=== PATIENT | female | born 1945 | race Caucasian/White ===

== ENCOUNTER 2020-10-26 14:07 | Outpatient (REF) | payer MEDICARE, SELFPAY ==
--- NOTE | 2020-10-26 14:11 | MM_ITS ---
EXAMINATION: MM SCREENING DIGITAL BREAST TOMOSYNTHESIS, BILATERAL CLINICAL INFORMATION: Screening. Asymptomatic. The lifetime risk of breast cancer based on the Tyrer-Cuzick Model is 3%. COMPARISON: Mammography: 09/08/2011, 01/11/2008 TECHNIQUE: Digital breast tomosynthesis is performed in both the craniocaudal and mediolateral oblique views along with computer-aided detection (CAD). Synthesized 2D images are generated from the tomosynthesis. FINDINGS: There are scattered areas of fibroglandular density (ACR BI-RADS breast composition Category b). There are no significant masses, abnormal calcifications, or other abnormalities. There are some prominent veins in each breast. Vascular calcifications are also noted. The skin contours are smooth. MM/MM tomosynthesis screening BI IMPRESSION: No mammographic evidence of malignancy. ASSESSMENT: BI-RADS 2: Benign RECOMMENDATION: Routine annual mammography screening. This patient's information was entered into a reminder system with a target due date for their next mammogram.
== END 2020-10-26 14:08 | disposition home or self-care (01) ==
LOC: HO.MAMMO 14:07
PROVIDERS: PCP Internal Medicine; Visit Provider Internal Medicine
DX: Z12.31 Encounter for screening mammogram for malignant neoplasm of breast (principal)
CPT/HCPCS: 77063; 77067

== ENCOUNTER 2021-01-17 06:10 | Outpatient (REF) | payer MEDICARE, SELFPAY ==
[2021-01-17 06:57] LABS: Hematocrit 40.9 % (37-47); Hemoglobin 13.1 g/dl (12.0-16.0); Mean Corpuscular Hemoglobin 32.1 pg (27.0-33.0); Mean Corpuscular Volume 100.2 fL (80-98); Mean Platelet Volume 9.7 fL (9.4-12.3); Platelet Count 231 X10*3/uL (160-400); Red Blood Count 4.08 X10*6/uL (4.20-5.50); Red Cell Distribution Width 13.2 % (11.0-16.0)
[2021-01-17 07:25] LABS: Alanine Aminotransferase 14 U/L (0-31); Albumin Level 4.2 g/dL (3.5-5.0); Alkaline Phosphatase 77 U/L (39-117); Anion Gap 12 (12-20); Aspartate Amino Transferase 12 U/L (5-31); Bilirubin Direct 0.2 mg/dL (0.0-0.5); Bilirubin Total 0.4 mg/dL (0.0-1.0); Blood Urea Nitrogen 24 mg/dL (9-16); Calcium 9.1 mg/dL (8.4-10.2); Carbon Dioxide 28 mmol/L (22-29); Chloride 106 mmol/L (96-108); Cholesterol 193 mg/dL; Estimated Glomerular Filt Rate 50; Glucose Random 111 mg/dL (60-115); HDL Cholesterol 57 mg/dL; LDL Cholesterol Calculated 110 mg/dl; Potassium 4.1 mmol/L (3.3-5.1); Sodium 142 mmol/L (135-145); Total Protein 6.8 g/dL (6.5-8.0); Triglycerides 130 mg/dL
[2021-01-17 07:45] LABS: Thyroid Stimulating Hormone 7.63 uIU/mL (0.32-4.0)
[2021-01-17 09:04] LABS: Estimated Average Glucose 123 mg/dL; Hemoglobin A1c % 5.9 %
[2021-01-17 09:13] LABS: Folate 19.6 ng/mL (> or = 4.0); Vitamin B12 419 pg/mL (200-900)
[2021-01-21 14:36] LABS: Vitamin D 25-OH, D2 <4 ng/mL; Vitamin D 25-OH, D3 38 ng/mL; Vitamin D 25-OH, Total 38 ng/mL (30-100)
== END 2021-01-17 06:11 | disposition home or self-care (01) ==
LOC: HO.LAB 06:10
PROVIDERS: Visit Provider Internal Medicine
DX: I10 Essential (primary) hypertension (principal)
CPT/HCPCS: 36415; 80048; 80061; 80076; 82306; 82607; 82746; 83036; 84443; 85027

== ENCOUNTER 2021-04-06 07:09 | Outpatient (REF) | payer MEDICARE, SELFPAY ==
[2021-04-06 08:06] LABS: Hematocrit 41.2 % (37-47); Hemoglobin 13.3 g/dl (12.0-16.0); Mean Corpuscular HGB Conc 32.3 g/dl (31.0-35.0); Mean Corpuscular Hemoglobin 32.6 pg (27.0-33.0); Mean Platelet Volume 9.7 fL (9.4-12.3); Platelet Count 229 X10*3/uL (160-400); Red Blood Count 4.08 X10*6/uL (4.20-5.50); Red Cell Distribution Width 13.3 % (11.0-16.0); White Blood Count 5.9 X10*3/uL (4.8-10.8)
[2021-04-06 08:26] LABS: Glucose Urine UA NEG (NEG); Leukocyte Esterase Urine 2+ (NEG); Nitrite Urine NEG (NEG); PH 5.5 (5.0-8.0); Specific Gravity - Urine 1.025 (1.005-1.025); Urine Blood TRACE (NEG); Urine Ketones NEG (NEG); Urine Protein NEG (NEG-TRACE)
[2021-04-06 08:27] LABS: Appearance Urine CLEAR; Color Urine YELLOW
[2021-04-06 08:56] LABS: RBC Urine 0-2 /HPF (0); Squamous Epithelial Cell Urine 1+ /LPF
[2021-04-06 09:27] LABS: Anion Gap 12 (12-20); Blood Urea Nitrogen 26 mg/dL (9-16); Carbon Dioxide 28 mmol/L (22-29); Chloride 107 mmol/L (96-108); Estimated Glomerular Filt Rate 57; Potassium 4.2 mmol/L (3.3-5.1); Sodium 143 mmol/L (135-145)
[2021-04-06 09:28] LABS: Alanine Aminotransferase 14 U/L (0-31); Albumin Level 4.2 g/dL (3.5-5.0); Alkaline Phosphatase 77 U/L (39-117); Aspartate Amino Transferase 13 U/L (5-31); Bilirubin Direct 0.2 mg/dL (0.0-0.5); Bilirubin Total 0.2 mg/dL (0.0-1.0); Calcium 9.5 mg/dL (8.4-10.2); Cholesterol 205 mg/dL; Glucose Random 112 mg/dL (60-115); HDL Cholesterol 64 mg/dL; LDL Cholesterol Calculated 111 mg/dl; Triglycerides 150 mg/dL
[2021-04-06 09:36] LABS: Microalbum/Creatinine Ratio Ur 44.6 ug/mg cr
[2021-04-06 09:45] LABS: Estimated Average Glucose 126 mg/dL
[2021-04-06 09:50] LABS: Thyroid Stimulating Hormone 3.11 uIU/mL (0.32-4.0)
[2021-04-08 09:02] LABS: Folate 19.6 ng/mL (> or = 4.0); Vitamin B12 454 pg/mL (200-900)
[2021-04-10 12:46] LABS: Vitamin D 25-OH, D2 <4 ng/mL; Vitamin D 25-OH, D3 39 ng/mL; Vitamin D 25-OH, Total 39 ng/mL (30-100)
== END 2021-04-06 07:10 | disposition home or self-care (01) ==
LOC: HO.LAB 07:09
PROVIDERS: PCP Internal Medicine; Visit Provider Internal Medicine
DX: E11.9 Type 2 diabetes mellitus without complications (principal); I10 Essential (primary) hypertension
CPT/HCPCS: 36415; 80048; 80061; 80076; 81001; 81003; 82043; 82306; 82607; 82746; 83036; 84443; 85027

== ENCOUNTER 2021-04-18 13:48 | Outpatient (REF) | payer MEDICARE, SELFPAY ==
[2021-04-18 15:06] LABS: Blood Urea Nitrogen 23 mg/dL (9-16); Estimated Glomerular Filt Rate 46
== END 2021-04-18 13:49 | disposition home or self-care (01) ==
LOC: HO.LAB 13:48
PROVIDERS: PCP Internal Medicine; Visit Provider Radiology Vascular & Interventional Radiology
DX: R79.89 Other specified abnormal findings of blood chemistry (principal); R94.4 Abnormal results of kidney function studies
CPT/HCPCS: 36415; 82565; 84520

== ENCOUNTER 2021-07-05 06:14 | Outpatient (REF) | payer MEDICARE, SELFPAY ==
[2021-07-05 08:02] LABS: Glucose Urine UA NEG (NEG); Leukocyte Esterase Urine 1+ (NEG); Nitrite Urine NEG (NEG); Urine Blood TRACE (NEG); Urine Ketones NEG (NEG); Urine Protein NEG (NEG-TRACE)
[2021-07-05 08:07] LABS: Appearance Urine CLEAR; Color Urine YELLOW
[2021-07-05 08:21] LABS: Bacteria Urine TRACE /LPF; Renal Epithelial Cells Urine TRACE /LPF; Squamous Epithelial Cell Urine TRACE /LPF; WBC Urine 0-2 /HPF (0-4)
[2021-07-05 08:22] LABS: Calcium Phosphate Crystals Ur TRACE /LPF
== END 2021-07-05 06:15 | disposition home or self-care (01) ==
LOC: HO.LAB 06:14
PROVIDERS: PCP Internal Medicine; Visit Provider Internal Medicine
DX: E11.9 Type 2 diabetes mellitus without complications (principal); I10 Essential (primary) hypertension
CPT/HCPCS: 81001; 81003

== ENCOUNTER 2021-10-09 13:08 | Outpatient (REF) | payer MEDICARE, SELFPAY ==
[2021-10-09 14:14] LABS: Appearance Urine CLEAR; Color Urine STRAW; Glucose Urine UA NEG (NEG); Leukocyte Esterase Urine NEG (NEG); Nitrite Urine NEG (NEG); Specific Gravity - Urine <= 1.005 (1.005-1.025); Urine Blood NEG (NEG); Urine Ketones NEG (NEG); Urine Protein NEG (NEG-TRACE)
== END 2021-10-09 13:09 | disposition home or self-care (01) ==
LOC: HO.LAB 13:08
PROVIDERS: PCP Internal Medicine; Visit Provider Internal Medicine
DX: E11.9 Type 2 diabetes mellitus without complications (principal); I10 Essential (primary) hypertension
CPT/HCPCS: 81003

== ENCOUNTER 2021-10-16 14:03 | Outpatient (REF) | payer MEDICARE, SELFPAY ==
[2021-10-16 14:47] LABS: Blood Urea Nitrogen 23 mg/dL (9-16); Estimated Glomerular Filt Rate 50
== END 2021-10-16 14:04 | disposition home or self-care (01) ==
LOC: HO.LAB 14:03
PROVIDERS: PCP Internal Medicine; Visit Provider Radiology Vascular & Interventional Radiology
DX: R79.89 Other specified abnormal findings of blood chemistry (principal); R94.4 Abnormal results of kidney function studies
CPT/HCPCS: 36415; 82565; 84520

== ENCOUNTER 2022-05-20 10:50 | Outpatient (REF) | payer MEDICARE, SELFPAY ==
--- NOTE | ~2022-05-20 | MM_ITS ---
EXAMINATION: MM SCREENING DIGITAL BREAST TOMOSYNTHESIS, BILATERAL CLINICAL INFORMATION: Screening. Asymptomatic. The lifetime risk of breast cancer based on the Tyrer-Cuzick Model is 2%. COMPARISON: Mammography: 10/26/2020, 09/08/2011 TECHNIQUE: Digital breast tomosynthesis is performed in both the craniocaudal and mediolateral oblique views along with computer-aided detection (CAD). Synthesized 2D images are generated from the tomosynthesis. FINDINGS: There are scattered areas of fibroglandular density (ACR BI-RADS breast composition Category b). There are no significant masses, abnormal calcifications, or other abnormalities. Parenchymal pattern is similar to prior studies. There are mildly prominent veins in noted. Vascular calcifications again seen. No significant changes. MM/MM tomosynthesis screening BI IMPRESSION: No mammographic evidence of malignancy. ASSESSMENT: BI-RADS 2: Benign RECOMMENDATION: Routine annual mammography screening. This patient's information was entered into a reminder system with a target due date for their next mammogram.
== END 2022-05-20 10:51 | disposition home or self-care (01) ==
LOC: HO.MAMMO 10:50
PROVIDERS: Visit Provider Internal Medicine
DX: Z12.31 Encounter for screening mammogram for malignant neoplasm of breast (principal)
CPT/HCPCS: 77063; 77067

== ENCOUNTER 2022-09-04 06:10 | Outpatient (REF) | payer MEDICARE, SELFPAY ==
[2022-09-04 06:36] LABS: MANUAL DIFF FLAG NO
[2022-09-04 07:31] LABS: Basophils Absolute Auto 0.1 X10*3/uL (0.0-0.2); Basophils Percent Auto 1.4 % (0-2); Eosinophils Absolute Auto 0.3 X10*3/uL (0.0-0.4); Eosinophils Percent Auto 5.9 % (0-4); Hematocrit 39.9 % (37.0-47.0); Hemoglobin 12.7 g/dl (12.0-16.0); Imm Gran Abs Auto 0.02 X10*3/uL (0.00-0.03); Imm Gran Pct Auto 0.4 % (0.0-0.4); Lymphocytes Absolute Auto 1.4 X10*3/uL (1.2-4.9); Lymphocytes Percent Auto 27.3 % (20-40); Mean Corpuscular HGB Conc 31.8 g/dl (31.0-35.0); Mean Corpuscular Hemoglobin 32.7 pg (27.0-33.0); Mean Corpuscular Volume 102.8 fL (80.0-98.0); Mean Platelet Volume 9.6 fL (9.4-12.3); Monocytes Absolute Auto 0.5 X10*3/uL (0.1-1.2); Monocytes Percent Auto 10.3 % (2-11); Neutrophils Absolute Auto 2.8 x10*3/uL (2.0-8.3); Neutrophils Percent Auto 54.7 % (45-73); Platelet Count 250 X10*3/uL (160-400); Red Blood Count 3.88 X10*6/uL (4.20-5.50); Red Cell Distribution Width 12.7 % (11.0-16.0); White Blood Count 5.1 X10*3/uL (4.8-10.8)
[2022-09-04 08:18] LABS: Alanine Aminotransferase 10 U/L (0-31); Albumin Level 4.1 g/dL (3.5-5.0); Alkaline Phosphatase 76 U/L (39-117); Anion Gap 14 (12-20); Aspartate Amino Transferase 16 U/L (5-31); Bilirubin Total 0.5 mg/dL (0.0-1.0); Blood Urea Nitrogen 22 mg/dL (9-16); Calcium 9.5 mg/dL (8.4-10.2); Carbon Dioxide 29 mmol/L (22-29); Chloride 106 mmol/L (96-108); Cholesterol 213 mg/dL; Estimated Glomerular Filt Rate > 60; Glucose Fasting 98 mg/dL (60-99); HDL Cholesterol 58 mg/dL; LDL Cholesterol Calculated 124 mg/dl; Potassium 4.5 mmol/L (3.3-5.1); Sodium 144 mmol/L (135-145); Total Protein 6.9 g/dL (6.5-8.0); Triglycerides 156 mg/dL
[2022-09-04 08:22] LABS: TSH reflex Free T4 3.95 uIU/mL (0.32-4.0)
== END 2022-09-04 06:11 | disposition home or self-care (01) ==
LOC: HO.LAB 06:10
PROVIDERS: PCP Internal Medicine; Visit Provider Nurse Practitioner Family
DX: E03.9 Hypothyroidism, unspecified (principal); E11.9 Type 2 diabetes mellitus without complications; E78.00 Pure hypercholesterolemia, unspecified; I10 Essential (primary) hypertension
CPT/HCPCS: 36415; 80053; 80061; 84443; 85025

== ENCOUNTER 2022-10-09 11:49 | Outpatient (REF) | payer MEDICARE, SELFPAY ==
[2022-10-09 13:19] LABS: Blood Urea Nitrogen 30 mg/dL (9-16); Estimated Glomerular Filt Rate 52
== END 2022-10-09 11:50 | disposition home or self-care (01) ==
LOC: HO.LAB 11:49
PROVIDERS: PCP Internal Medicine; Visit Provider Radiology Vascular & Interventional Radiology
DX: R79.89 Other specified abnormal findings of blood chemistry (principal); R94.4 Abnormal results of kidney function studies
CPT/HCPCS: 36415; 82565; 84520

== ENCOUNTER 2022-11-12 11:17 | Outpatient (REF) | payer MEDICARE, SELFPAY ==
[2022-11-12 12:18] LABS: Influenza A PCR POSITIVE (Negative); Influenza B PCR NEGATIVE (Negative); Resp Syncy Virus RNA Qual PCR NEGATIVE (Negative); SARS COV2 PCR INHOUSE NEGATIVE (Negative)
== END 2022-11-12 11:18 | disposition home or self-care (01) ==
LOC: HO.LNP 11:17
PROVIDERS: Visit Provider Nurse Practitioner Family
DX: Z20.822 Contact with and (suspected) exposure to COVID-19 (principal); B34.9 Viral infection, unspecified
CPT/HCPCS: 0241U

== ENCOUNTER 2023-01-15 11:01 | Outpatient (REF) | payer MEDICARE, SELFPAY ==
[2023-01-15 11:56] LABS: Hematocrit 41.1 % (37.0-47.0); Hemoglobin 13.2 g/dl (12.0-16.0); Mean Corpuscular HGB Conc 32.1 g/dl (31.0-35.0); Mean Corpuscular Hemoglobin 32.4 pg (27.0-33.0); Mean Corpuscular Volume 100.7 fL (80.0-98.0); Mean Platelet Volume 9.3 fL (9.4-12.3); Platelet Count 232 X10*3/uL (160-400); Red Blood Count 4.08 X10*6/uL (4.20-5.50); Red Cell Distribution Width 12.8 % (11.0-16.0); White Blood Count 9.1 X10*3/uL (4.8-10.8)
[2023-01-15 12:36] LABS: Alanine Aminotransferase 14 U/L (0-31); Albumin Level 4.1 g/dL (3.5-5.0); Alkaline Phosphatase 76 U/L (39-117); Anion Gap 14 (12-20); Aspartate Amino Transferase 17 U/L (5-31); Bilirubin Direct 0.2 mg/dL (0.0-0.5); Bilirubin Total 0.6 mg/dL (0.0-1.0); Blood Urea Nitrogen 18 mg/dL (9-16); Calcium 9.8 mg/dL (8.4-10.2); Carbon Dioxide 27 mmol/L (22-29); Chloride 107 mmol/L (96-108); Cholesterol 203 mg/dL; Estimated Glomerular Filt Rate > 60; Glucose Random 96 mg/dL (60-115); HDL Cholesterol 58 mg/dL; LDL Cholesterol Calculated 106 mg/dl; Potassium 4.3 mmol/L (3.3-5.1); Sodium 144 mmol/L (135-145); Triglycerides 196 mg/dL
[2023-01-15 12:53] LABS: Thyroid Stimulating Hormone 2.95 uIU/mL (0.32-4.0)
== END 2023-01-15 11:02 | disposition home or self-care (01) ==
LOC: HO.LAB 11:01
PROVIDERS: PCP Internal Medicine; Visit Provider Internal Medicine
DX: M48.062 Spinal stenosis, lumbar region with neurogenic claudication (principal); E78.00 Pure hypercholesterolemia, unspecified; E11.9 Type 2 diabetes mellitus without complications
CPT/HCPCS: 36415; 80048; 80061; 80076; 84443; 85027

== ENCOUNTER 2023-03-20 10:06 | Outpatient (REF) | payer MEDICARE, SELFPAY ==
[2023-03-20 11:36] LABS: Blood Urea Nitrogen 15 mg/dL (9-16); Estimated Glomerular Filt Rate > 60
== END 2023-03-20 10:07 | disposition home or self-care (01) ==
LOC: HO.LAB 10:06
PROVIDERS: PCP Internal Medicine; Visit Provider Radiology Vascular & Interventional Radiology
DX: R79.89 Other specified abnormal findings of blood chemistry (principal); R94.4 Abnormal results of kidney function studies
CPT/HCPCS: 36415; 82565; 84520

== ENCOUNTER → 2023-06-08 09:45 | Outpatient (BNV) | payer MEDICARE, SELFPAY | PROVIDERS: PCP Internal Medicine; Visit Provider Radiology Diagnostic Radiology | DX: Z12.31 Encounter for screening mammogram for malignant neoplasm of breast (principal) | CPT/HCPCS: 77063; 77067 ==

== ENCOUNTER 2023-06-08 10:19 | Outpatient (REF) | payer MEDICARE, SELFPAY ==
--- NOTE | ~2023-06-08 | MM_ITS ---
EXAMINATION: MM SCREENING DIGITAL BREAST TOMOSYNTHESIS, BILATERAL CLINICAL INFORMATION: Screening. Asymptomatic. The lifetime risk of breast cancer based on the Tyrer-Cuzick Model is 2.2%. COMPARISON: Mammography: This study is compared with prior exams dating back to 2019. TECHNIQUE: Digital breast tomosynthesis is performed in both the craniocaudal and mediolateral oblique views along with computer-aided detection (CAD). Synthesized 2D images are generated from the tomosynthesis. FINDINGS: There are scattered areas of fibroglandular density (ACR BI-RADS breast composition Category b). There are no significant masses, abnormal calcifications, or other abnormalities. MM/MM tomosynthesis screening BI IMPRESSION: No mammographic evidence of malignancy. ASSESSMENT: BI-RADS BI-RADS 1 - Negative RECOMMENDATION: Routine annual mammography screening. 1 year F/U This examination should not preclude the clinical evaluation of a suspicious palpable abnormality. This patient's information was entered into a reminder system with a target due date for their next mammogram.
== END 2023-06-08 10:20 | disposition home or self-care (01) ==
LOC: HO.MAMMO 10:19
PROVIDERS: PCP Internal Medicine; Visit Provider Internal Medicine
DX: Z12.31 Encounter for screening mammogram for malignant neoplasm of breast (principal)
CPT/HCPCS: 77063; 77067

== ENCOUNTER 2023-09-23 13:52 | Outpatient (AMB) | payer MEDICARE, SELFPAY ==
--- NOTE | 2023-09-23 14:01 | MHC.PC.OV ---
Vital Signs 09/23/23 14:04 Height 5 ft 4 in Weight 196 lb 8 oz BMI 33.7 BP 140/70 H Blood Pressure Location Lt brachial Position Sitting Pulse 79 Pulse Source Pulse Oximeter Pulse Oximetry (%) 99 Oxygen Delivery Method Room Air Intake Visit Reasons: Theresa Ventura Broken left hip, 08/20-09/15 Intake Note: Patient is here for hospital discharge follow up. Patient was discharged from [facility] on 09/15[facility]23. Station Cashier Required: No E D Tech: Not Required per policy Accompanied by: Self / Same As Patient Allergies No Known Allergies [No Known Allergies*] Allergy (Verified 09/23/23 14:02) Tobacco use date assessed: 09/23/23 Fall risk assessment: 1 Fall in past year Last assessed Fall Risk: 09/23/23 Dental Screening Dental Screen Date: 09/23/23 Did you have a dental visit in the last 12 months?: No Did you have a dental problem in the last 6 months where you did not have access to dental care?: No Was dental information given to patient?: No (dentures) HPI Theresa Ventura Broken left hip, 08/20-09/15 HPI Details 78-year-old female presents to the office to discuss her chronic medical conditions. Patient since last visit had a fall and fractured her left hip. She received a replacement and was in a surgical shelter for a few weeks. She is been discharged home. Patient is able to walk using a walker. She is able to do her activities of daily living. Her pain symptoms are under reasonable control. Patient lives at home with her son and [id number]. She is able to climb stairs. [facility] Medical History Spinal stenosis, lumbar region with neurogenic claudication Class 2 severe obesity with body mass index (BMI) of 35 to 39.9 with serious comorbidity Hypercholesterolemia Diabetes mellitus Essential (primary) hypertension Surgical History (Updated 09/23/23 @ 14:55 by Pepe Marley MD) History of left hip replacement History of back surgery History of intravascular stent placement History of surgery History of tonsillectomy and adenoidectomy Family History Father Heart disease Mother Intestinal hemorrhage Family/Other Heart disease Hypertension Social History Housing: House Alcohol intake: current Alcohol intake frequency: does not drink Patient Tobacco Use Status: Former Tobacco user (11 years ago) Quit Date: 11 years ago Tobacco use type: Cigarette e-Cigarette/Vaping Use: Never Used Second Hand Smoke Exposure: No service: No Current occupational status: retired Cognitive needs: Yes (walker) Hearing needs: No Vision needs: Yes (reading glasses) Questionnaire Thrive Questionnaire Date Thrive assessed: 01/15/23 IRINA-7 AMB Questionnaire IRINA-7 Date IRINA - 7 assessed: 01/15/23 Source: Developed by Drs. Kirk Lizama, Katelynn Kent, Rene Cherry and colleagues, with an educational dulce from [employer]. Physical exam (Primary Care) Vital Signs: Last Vital Signs Pulse 79 09/23/23 14:04 BP 140/70 H 09/23/23 14:04 Pulse Ox 99 09/23/23 14:04 Oxygen Delivery Method Room Air 09/23/23 14:04 BMI result Body Mass Index 33.7 Tobacco/Smoking Status: Tobacco use Status Tobacco use date assessed 09/23/23 09/23/23 14:08 Patient Tobacco Use Status Former Tobacco user (11 09/23/23 14:08 years ago) Tobacco use type Cigarette 09/23/23 14:08 e-Cigarette/Vaping Use Never Used 09/23/23 14:08 Thrive Assessment: Date of Thrive Assessment Date Thrive assessed 01/15/23 09/23/23 14:08 Const General: cooperative and healthy appearing Nutritional Appearance: well nourished Orientation/consciousness: patient oriented x3 Limitations: no limitations HENMT Head: Yes normal to inspection Eyes General: appearance normal, both eyes and all related structures Neck Neck: Yes normal visual inspection Chest Chest palpation & inspection: normal palpation of entire chest wall Resp Effort & Inspection: normal respiratory effort Neuro General: patient oriented x3 Office Procedures Flu Questionnaire Does the patient have a severe egg allergy?: No Does the patient have severe life threatening allergies?: No Does the patient have a fever or illness today?: No Has the patient ever had Guillain-[place] Syndrome?: No Has the patient ever had any past reaction to a flu shot?: No Results AMB Hemoglobin A1c AMB Hemoglobin A1c 5.3 % Last Edit by DARSHAN Smith on 09/23/23 14:29 Immunizations flu vacc [id number] 6mos up(PF) 60 mcg(15 mcgx4)/0.5 mL IM syringe Performing Provider: Pepe Marley MD Performing Location: [facility] Administered by: Deanna Miles on 09/23/23 14:21 Dose Route Admin Location Dispensed Lot Number Expiration Date NDC Packing Machine Can Feeder 0.5 mL IM Left Deltoid 0.5 mL [id number] 05/29/24 [id number] VIS Given Date VIS Provided VIS Publication Date 09/23/23 Single Vaccine 21 Eligibility Eligibility Date Funding Source Not VFC Eligible 09/23/23 Private Results Reviewed Results Reviewed: Laboratory Last Values Hgb A1c (Clinic) 5.3 % (4.0-6.0) 09/23/23 14:16 Assessment and Plan Assessment & Plan (1) Hip joint replacement status: Code(s): Z96.649 - Presence of unspecified artificial hip joint Plan: Continue follow-up with orthopedic surgeon. Vital signs are stable. Blood work is in range. Orders: Orders AMB Hemoglobin A1c Today E11.9 - Type 2 diabetes mellitus without complications Influenza [id number] Immunization Today Z23 - Encounter for immunization Coding Level of Care Code Est Pt Level 3 (78755) Diagnoses Hip joint replacement status Z96.649
[2023-09-23 14:04] VITALS: BP 140/70; PULSE 79; O2SAT 99; BMI 33.7
== END 2023-09-23 14:37 | disposition home or self-care (01) ==
PROVIDERS: PCP Internal Medicine; Visit Provider Internal Medicine
DX: Z23 Encounter for immunization (principal); E11.9 Type 2 diabetes mellitus without complications; Z96.649 Presence of unspecified artificial hip joint
CPT/HCPCS: 83036; 90471; 90686; 99213

== ENCOUNTER 2023-11-12 08:45 | Outpatient (AMB) | payer MEDICARE, SELFPAY ==
--- NOTE | 2023-11-12 08:50 | MHC.PC.OV ---
Vital Signs 11/12/23 08:51 Height 5 ft 4 in Weight 192 lb 8 oz BMI 33.0 BP 130/80 Blood Pressure Location Lt brachial Position Sitting Pulse 82 Pulse Source Pulse Oximeter Pulse Oximetry (%) 94 Oxygen Delivery Method Room Air Intake Visit Reasons: BP follow up, per Dr. Kristie Joseph Note: Patient is here to follow up on blood pressure. Pipe Machine Operator Required: No Agricultural Real Estate Agent: Not Required per policy Accompanied by: Self / Same As Patient Allergies No Known Allergies [No Known Allergies*] Allergy (Verified 11/12/23 08:51) Tobacco use date assessed: 11/12/23 HPI HPI Comments History of Present Illness Details 78-year-old female past medical history significant for hypercholesteremia, hypothyroidism, diabetes mellitus and hypertension. Patient Dr. Marley presents today for follow-up. Blood pressure office today 130/80. Patient reports that when [facility] comes and checks her b/ps: 176/77, 166/70. patient reports prior to taking second does of lisinopril or the evening. However when physical therapist came to discharge her from PT her blood pressure was checked and it was 140/90 and patient reports she had been rushing around that morning from her hair appointment. Patient reports hydrochlorothiazide 25 mg daily was recently added to her blood pressure regimen. Patient denies any headaches, blurred vision and chest pains. Patient reports she does have old blood pressure cuff at home which she is not sure how accurate the readings would be if she used it. Requesting a new prescription for this as well as a refill on her lisinopril. Rx sent [facility] Medical History Spinal stenosis, lumbar region with neurogenic claudication Class 2 severe obesity with body mass index (BMI) of 35 to 39.9 with serious comorbidity Hypercholesterolemia Diabetes mellitus Essential (primary) hypertension Surgical History History of left hip replacement History of back surgery History of intravascular stent placement History of surgery History of tonsillectomy and adenoidectomy Family History Father Heart disease Mother Intestinal hemorrhage Family/Other Heart disease Hypertension Social History (Reviewed 11/12/23 @ 08:50 by TIRSO Smith Housing: House Alcohol intake: current Alcohol intake frequency: does not drink Patient Tobacco Use Status: Former Tobacco user (11 years ago) Quit Date: 11 years ago Tobacco use type: Cigarette e-Cigarette/Vaping Use: Never Used Second Hand Smoke Exposure: No service: No Current occupational status: retired Cognitive needs: Yes (walker) Hearing needs: No Vision needs: Yes (reading glasses) Questionnaire Thrive Questionnaire Date Thrive assessed: 01/15/23 IRINA-7 AMB Questionnaire IRINA-7 Date IRINA - 7 assessed: 01/15/23 Source: Developed by Drs. Kirk Lizama, Katelynn Kent, Rene Cherry and colleagues, with an educational dulce from [employer]. Review of Systems Const Denies chills, Denies fatigue, Denies fever(s) and Denies poor appetite Eyes Denies no additional complaints ENT Reports Normal hearing present Card Denies chest pain, Denies syncope, Denies rapid heart rate and Denies dyspnea Resp Denies cough and Denies dyspnea GI Denies change in stool character, Denies constipation, Denies diarrhea, Denies nausea and Denies vomiting Denies urinary frequency, Denies dysuria and Denies urinary urgency Neuro Reports Normal hearing present, Denies confusion and Denies syncope Psych Denies confusion Endo Denies fatigue Physical exam (Primary Care) Vital Signs: Last Vital Signs Pulse 82 11/12/23 08:51 BP 130/80 11/12/23 08:51 Pulse Ox 94 11/12/23 08:51 Oxygen Delivery Method Room Air 11/12/23 08:51 BMI result Body Mass Index 33.0 Tobacco/Smoking Status: Tobacco use Status Tobacco use date assessed 09/23/23 09/23/23 14:08 Patient Tobacco Use Status Former Tobacco user 09/23/23 14:08 Tobacco use type Cigarette 09/23/23 14:08 e-Cigarette/Vaping Use Never Used 09/23/23 14:08 Thrive Assessment: Date of Thrive Assessment Date Thrive assessed 01/15/23 09/23/23 14:08 Const General: No confusion Orientation/consciousness: No confusion HENMT Head: Yes normocephalic and Yes atraumatic Eyes Conjunctivae: conjunctivae normal Chest Chest palpation & inspection: normal inspection of the chest Resp Effort & Inspection: normal respiratory effort Auscultation: clear to auscultation bilaterally, no crackles, no rhonchi and no wheezes Cardio Rate: regular rate Rhythm: regular rhythm Heart sounds: S1 normal heart sound present and S2 normal heart sound present GI Inspection: Yes normal to inspection Neuro General: No confusion Cranial nerves: Yes Normal hearing present Extrem General: No edema Assessment and Plan Assessment & Plan (1) Diabetes mellitus: Code(s): E11.9 - Type 2 diabetes mellitus without complications Qualifiers: Diabetes mellitus type: type 2 Diabetes mellitus mcc insulin use: without mcc use Diabetes mellitus complication status: with circulatory complication Plan: Continue on pioglitazone. (2) Acquired hypothyroidism: Code(s): E03.9 - Hypothyroidism, unspecified Plan: Continue on levothyroxine. (3) Essential (primary) hypertension: Code(s): I10 - Essential (primary) hypertension Plan: Continue on amlodipine 10 mg daily, lisinopril 20 mg b.i.d. and hydrochlorothiazide 25 mg daily. Patient would like to hold off on hydrochlorothiazide dose increase at this time states she would like to continue monitor her blood pressure at home. Blood pressure cuff prescription sent to patient's pharmacy. Patient advised to check blood pressures periodically throughout the day and keep a log patient advised to call office with any elevated blood pressure readings. Blood pressure goal less than 140/90. Patient will follow-up in 1 month for blood pressure recheck in if remains elevated discussed increasing hydrochlorothiazide. Patient agreeable to plan again. 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
[2023-11-12 08:51] VITALS: BP 130/80; PULSE 82; O2SAT 94; BMI 33.0
== END 2023-11-12 09:43 | disposition home or self-care (01) ==
PROVIDERS: PCP Internal Medicine; Visit Provider Nurse Practitioner Family
DX: E11.9 Type 2 diabetes mellitus without complications (principal); E03.9 Hypothyroidism, unspecified; I10 Essential (primary) hypertension
CPT/HCPCS: 99213

== ENCOUNTER 2023-12-24 10:24 | Outpatient (AMB) | payer MEDICARE, SELFPAY ==
--- NOTE | 2023-12-24 10:58 | MHC.PC.OV ---
Vital Signs 12/24/23 11:02 Height 5 ft 4 in Weight 192 lb 8 oz BMI 33.0 BP 132/68 Blood Pressure Location Lt brachial Position Sitting Pulse 72 Pulse Source Pulse Oximeter Pulse Oximetry (%) 98 Oxygen Delivery Method Room Air Intake Visit Reasons: 3 month f/u Intake Note: Patient is here to follow up on DM, HTN, Hypercholesterolemia. Social Services Manager Required: No Geoscience Laboratory Technician: Not Required per policy Accompanied by: Self / Same As Patient Allergies No Known Allergies [No Known Allergies*] Allergy (Verified 12/25/23 14:36) Medication List - Last Reconciled 12/25/23 by Pepe Marley MD amlodipine 10 mg PO DAILY blood pressure test kit-medium As directed clopidogrel 75 mg PO DAILY hydrochlorothiazide 25 mg PO DAILY levothyroxine 25 mcg PO DAILY lisinopril 20 mg PO BID multivit,mzdpnoi-jfc-eqgtz acd 200 mcg (One-A-Day Proactive 65 Plus) 2 tabs PO DAILY pioglitazone 30 mg PO DAILY Tobacco use date assessed: 12/24/23 Fall risk assessment: 1 Fall in past year (in jul 2023) Last assessed Fall Risk: 12/24/23 Dental Screening Dental Screen Date: 12/24/23 Did you have a dental visit in the last 12 months?: No Did you have a dental problem in the last 6 months where you did not have access to dental care?: No Was dental information given to patient?: No (dentures) HPI 3 month f/u HPI Details 78-year-old female presents to the office to discuss her chronic medical conditions. Patient is compliant with all her medications and reporting no side effects. Able to function and do all activities of daily living. Not checking her blood sugars often. Recently underwent orthopedic surgery and is continuing to have physical therapy. Recovering well post surgery. [facility] Medical History Spinal stenosis, lumbar region with neurogenic claudication Class 2 severe obesity with body mass index (BMI) of 35 to 39.9 with serious comorbidity Hypercholesterolemia Diabetes mellitus Essential (primary) hypertension Surgical History History of left hip replacement History of back surgery History of intravascular stent placement History of surgery History of tonsillectomy and adenoidectomy Family History Father Heart disease Mother Intestinal hemorrhage Family/Other Heart disease Hypertension Social History Housing: House Alcohol intake: current Alcohol intake frequency: does not drink Patient Tobacco Use Status: Former Tobacco user (11 years ago) Quit Date: 11 years ago Tobacco use type: Cigarette e-Cigarette/Vaping Use: Never Used Second Hand Smoke Exposure: No service: No Current occupational status: retired Cognitive needs: Yes (walker) Hearing needs: No Vision needs: Yes (reading glasses) Questionnaire PHQ-9 Over the last 2 weeks, how often have you been bothered by any of the following problems? 1. Little interest or pleasure in doing things: not at all 2. Feeling down, depressed, or hopeless: not at all 3. Trouble falling or staying asleep, or sleeping too much: not at all 4. Feeling tired or having little energy: not at all 5. Poor appetite or overeating: not at all 6. Feeling bad about yourself - or that you are a failure or have let yourself or your family down: not at all 7. Trouble concentrating on things, such as reading the newspaper or watching television: not at all 8. Moving or speaking so slowly that other people could have noticed. Or the opposite - being so fidgety or restless that you have been moving around a lot more than usual: not at all 9. Thoughts that you would be better off or of hurting yourself in some way: not at all Total score: 0 Depression Screening Interpretation: Negative Depression Screening Done: Yes Source: Developed by Drs. Kirk Lizama, Katelynn Kent, Rene Cherry and colleagues, with an educational dulce from [employer]. Thrive Questionnaire Date Thrive assessed: 12/24/23 I am a: Patient What is your living situation today?: I have a steady place to live Within the past 12 months, did the food you bought not last and you didn't have the money to get more?: Never true Within the past 12 months, did you worry whether your food would run out before you got money to buy more?: Never true Do you have trouble paying for medicines?: No Do you have trouble getting transportation to medical appointments?: No Do you have trouble paying your heating and electricity bill?: No Do you have trouble taking care of your child, family member or friend?: No Do you have trouble with day-to-day activities such as bathing, preparing meals, shopping, managing finances, etc.?: No Are you currently unemployed and looking for a job?: No Are you interested in more education?: No Currently or been in a relationship where the following occur: no concerns reported THRIVE Score: 0 AUDIT C Alcohol Use Questionnaire (AUDIT-C) 1. How often do you have a drink containing alcohol?: Never Total Score: 0 IRINA-7 AMB Questionnaire IRINA-7 Date IRINA - 7 assessed: 12/24/23 Feeling nervous, anxious, or on edge: 0 = Not at all Not being able to stop or control worryin = Not at all Worrying too much about different things: 0 = Not at all Trouble relaxin = Not at all Being so restless that it is hard to sit still: 0 = Not at all Becoming easily annoyed or irritable: 0 = Not at all Feeling afraid as if something awful might happen: 0 = Not at all Total IRINA-7 score (0-4 normal; 5-9 mild; 10-14 moderate; 15-21 severe): 0 Source: Developed by Drs. Kirk Lizama, Katelynn Kent, Rene Cherry and colleagues, with an educational dulce from [employer]. Physical exam (Primary Care) Vital Signs: Last Vital Signs Pulse 72 12/24/23 11:02 BP 132/68 12/24/23 11:02 Pulse Ox 98 12/24/23 11:02 Oxygen Delivery Method Room Air 12/24/23 11:02 Care Plan Goal for BP management: Blood pressure is in range. Continue current medications. BMI result Body Mass Index 33.0 BMI Assessment/Plan discussion: High (One lb per week weight loss suggested.) BMI High, discussed plan: lifestyle, weight reduction and dietary Tobacco/Smoking Status: Tobacco use Status Tobacco use date assessed 12/24/23 12/24/23 11:08 Patient Tobacco Use Status Former Tobacco user (11 12/24/23 10:58 years ago) Tobacco use type Cigarette 12/24/23 10:58 e-Cigarette/Vaping Use Never Used 12/24/23 10:58 PHQ-9: PHQ-9 Score PHQ-9: Total score 0 12/24/23 11:11 Depression Screening Interpretation: Negative Thrive Assessment: Date of Thrive Assessment Date Thrive assessed 12/24/23 12/24/23 11:08 Currently or been in a relationship where the following occur: no concerns reported Const General: cooperative and healthy appearing Nutritional Appearance: well nourished Orientation/consciousness: patient oriented x3 Limitations: no limitations HENMT Head: Yes normal to inspection Eyes General: appearance normal, both eyes and all related structures Neck Neck: Yes normal visual inspection Chest Chest palpation & inspection: normal palpation of entire chest wall Resp Effort & Inspection: normal respiratory effort Neuro General: patient oriented x3 Results AMB Hemoglobin A1c AMB Hemoglobin A1c 6.7 % Last Edit by DARSHAN Smith on 12/24/23 11:12 Results Reviewed Results Reviewed: Laboratory Last Values Hgb A1c (Clinic) 6.7 % (4.0-6.0) H 12/24/23 10:58 Assessment and Plan Assessment & Plan (1) Diabetes mellitus: Code(s): E11.9 - Type 2 diabetes mellitus without complications Qualifiers: Diabetes mellitus type: type 2 Diabetes mellitus 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 Blood work has been reviewed. (2) Essential (primary) hypertension: Code(s): I10 - Essential (primary) hypertension Plan: Blood pressure is in range. Continue current medications. Orders: Orders Lipid Panel Today E11.9 - Type 2 diabetes mellitus without complications, I10 - Essential (primary) hypertension Liver Panel Today E11.9 - Type 2 diabetes mellitus without complications, I10 - Essential (primary) hypertension Thyroid Stimulating Hormone Today E11.9 - Type 2 diabetes mellitus without complications, I10 - Essential (primary) hypertension Hemoglobin A1c Today E11.9 - Type 2 diabetes mellitus without complications, I10 - Essential (primary) hypertension UA and rflx microscopic Today E11.9 - Type 2 diabetes mellitus without complications, I10 - Essential (primary) hypertension AMB Hemoglobin A1c 12/24/23 E11.9 - Type 2 diabetes mellitus without complications Basic Metabolic Panel Today E11.9 - Type 2 diabetes mellitus without complications, I10 - Essential (primary) hypertension Complete Blood Count no Diff Today E11.9 - Type 2 diabetes mellitus without complications, I10 - Essential (primary) hypertension Coding Level of Care Code Est Pt Level 4 (24190) Diagnoses Diabetes mellitus E11.9 Diabetes mellitus type: type 2 Diabetes mellitus intermediate school teacher insulin use: without intermediate school teacher use Diabetes mellitus complication status: with circulatory complication Essential (primary) hypertension I10
[2023-12-24 11:02] VITALS: BP 132/68; PULSE 72; O2SAT 98; BMI 33.0
== END 2023-12-24 11:49 | disposition home or self-care (01) ==
PROVIDERS: PCP Internal Medicine; Visit Provider Internal Medicine
DX: E11.9 Type 2 diabetes mellitus without complications (principal); I10 Essential (primary) hypertension
CPT/HCPCS: 83036; 99214

== ENCOUNTER 2023-12-30 06:13 | Outpatient (REF) | payer MEDICARE, SELFPAY ==
[2023-12-30 07:45] LABS: Hematocrit 37.8 % (37.0-47.0); Mean Corpuscular HGB Conc 31.7 g/dl (31.0-35.0); Mean Corpuscular Hemoglobin 31.7 pg (27.0-33.0); Mean Corpuscular Volume 99.7 fL (80.0-98.0); Mean Platelet Volume 9.7 fL (9.4-12.3); Platelet Count 241 X10*3/uL (160-400); Red Blood Count 3.79 X10*6/uL (4.20-5.50); Red Cell Distribution Width 13.7 % (11.0-16.0); White Blood Count 5.8 X10*3/uL (4.8-10.8)
[2023-12-30 08:01] LABS: Appearance Urine Cloudy; Color Urine Yellow; Glucose Urine UA Negative (Negative); Leukocyte Esterase Urine Moderate (2+) (Negative); Nitrite Urine Negative (Negative); Specific Gravity - Urine 1.025 (1.005-1.025); UMIC TRIGGER UA YES; Urine Blood Trace (Negative); Urine Ketones Negative (Negative); Urine Protein 30 (1+) mg/dL (Neg-Trace)
[2023-12-30 08:02] LABS: Estimated Average Glucose 128 mg/dL; Hemoglobin A1c % 6.1 % (<6.0)
[2023-12-30 08:07] LABS: Alanine Aminotransferase 10 U/L (0-31); Albumin Level 3.8 g/dL (3.5-5.0); Alkaline Phosphatase 60 U/L (39-117); Anion Gap 11 (12-20); Aspartate Amino Transferase 13 U/L (5-31); Bilirubin Direct 0.2 mg/dL (0.0-0.5); Bilirubin Total 0.4 mg/dL (0.0-1.0); Blood Urea Nitrogen 30 mg/dL (9-16); Calcium 9.5 mg/dL (8.4-10.2); Carbon Dioxide 27 mmol/L (22-29); Chloride 106 mmol/L (96-108); Cholesterol 193 mg/dL (<200); Estimated Glomerular Filt Rate 49; Glucose Random 108 mg/dL (60-115); HDL Cholesterol 61 mg/dL (>40); LDL Cholesterol Calculated 107 mg/dL (<100); Potassium 4.3 mmol/L (3.3-5.1); Sodium 140 mmol/L (135-145); Triglycerides 127 mg/dL (<150)
[2023-12-30 08:24] LABS: Thyroid Stimulating Hormone 4.39 uIU/mL (0.32-4.0)
[2023-12-30 08:35] LABS: WBC Urine 21-50 /HPF (0-5)
[2023-12-30 08:36] LABS: Bacteria Urine 2+ (None Seen); Hyaline Casts Urine 0-2 /LPF (0-2)
== END 2023-12-30 06:14 | disposition home or self-care (01) ==
LOC: HO.LAB 06:13
PROVIDERS: PCP Internal Medicine; Visit Provider Internal Medicine
DX: E11.9 Type 2 diabetes mellitus without complications (principal); I10 Essential (primary) hypertension
CPT/HCPCS: 36415; 80048; 80061; 80076; 81001; 81003; 83036; 84443; 85027

== ENCOUNTER 2024-03-31 10:28 | Outpatient (AMB) | payer MEDICARE, SELFPAY ==
--- NOTE | 2024-03-31 10:36 | A.OFFPC_ITS ---
Vital Signs 03/31/24 10:37 Height 5 ft 4 in Weight 194 lb 8 oz BMI 33.4 BP 142/62 H Blood Pressure Location Lt brachial Position Sitting Pulse 70 Pulse Source Pulse Oximeter Pulse Oximetry (%) 97 Oxygen Delivery Method Room Air Intake Visit Reasons: 3 month f/u Intake Note: Patient is here to follow up on DM, HTN, Hypothyroidism. Noodle Catalyst Maker Required: No Superintendent Institution: Not Required per policy Accompanied by: Self / Same As Patient Allergies No Known Allergies [No Known Allergies*] Allergy (Verified 03/31/24 13:10) Medication List - Last Reconciled 03/31/24 by Pepe Marley MD amlodipine 10 mg PO DAILY blood pressure test kit-medium As directed celecoxib 200 mg PO DAILY clopidogrel 75 mg PO DAILY cyclobenzaprine 10 mg PO BEDTIME hydrochlorothiazide 25 mg PO DAILY levothyroxine 50 mcg PO DAILY lisinopril 20 mg PO BID multivit,eiazjte-zdi-lfkfu acd 200 mcg (One-A-Day Proactive 65 Plus) 2 tabs PO DAILY pioglitazone 30 mg PO DAILY Tobacco use date assessed: 03/31/24 Fall risk assessment: No Falls in past year Last assessed Fall Risk: 03/31/24 Dental Screening Dental Screen Date: 12/24/23 HPI 3 month f/u HPI Details 78-year-old female presents to the [facility] to discuss her chronic medical conditions. Patient is at baseline state of health and able to function and do all activities of daily living. Her appetite is normal and she sleeps well. Patient continues to drive and take care of her personal hygiene and finances. No falls. [facility] Medical History Spinal stenosis, lumbar region with neurogenic claudication Class 2 severe obesity with body mass index (BMI) of 35 to 39.9 with serious comorbidity Hypercholesterolemia Diabetes mellitus Essential (primary) hypertension Surgical History History of left hip replacement History of back surgery History of intravascular stent placement History of surgery History of tonsillectomy and adenoidectomy Family History Father Heart disease Mother Intestinal hemorrhage Family/Other Heart disease Hypertension Social History Housing: House Alcohol intake: current Alcohol intake frequency: does not drink Patient Tobacco Use Status: Former Tobacco user (11 years ago) Quit Date: 11 years ago Tobacco use type: Cigarette e-Cigarette/Vaping Use: Never Used Second Hand Smoke Exposure: No service: No Current occupational status: retired Cognitive needs: Yes (walker) Hearing needs: No Vision needs: Yes (reading glasses) Questionnaire Thrive Questionnaire Date Thrive assessed: 12/24/23 Currently or been in a relationship where the following occur: no concerns reported THRIVE Score: 0 IRINA-7 AMB Questionnaire IRINA-7 Date IRINA - 7 assessed: 12/24/23 Source: Developed by Drs. Kirk Lizama, Katelynn Kent, Rene Cherry and colleagues, with an educational dulce from [employer]. Physical exam (Primary Care) Vital Signs: Last Vital Signs Pulse 70 03/31/24 10:37 BP 142/62 H 03/31/24 10:37 Pulse Ox 97 03/31/24 10:37 Oxygen Delivery Method Room Air 03/31/24 10:37 Care Plan Goal for BP management: Blood pressure is in range. Continue current medications at same dosage. BMI result Body Mass Index 33.4 BMI Assessment/Plan discussion: High Tobacco/Smoking Status: Tobacco use Status Tobacco use date assessed 03/31/24 03/31/24 10:46 Patient Tobacco Use Status Former Tobacco user (11 03/31/24 10:46 years ago) Tobacco use type Cigarette 03/31/24 10:46 e-Cigarette/Vaping Use Never Used 03/31/24 10:46 Thrive Assessment: Date of Thrive Assessment Date Thrive assessed 12/24/23 03/31/24 10:46 Currently or been in a relationship where the following occur: no concerns reported Const General: cooperative and healthy appearing Nutritional Appearance: well nourished Orientation/consciousness: patient oriented x3 Limitations: no limitations HENMT Head: Yes normal to inspection Eyes General: appearance normal, both eyes and all related structures Neck Neck: Yes normal visual inspection Chest Chest palpation & inspection: normal palpation of entire chest wall Resp Effort & Inspection: normal respiratory effort Neuro General: patient oriented x3 Results AMB Hemoglobin A1c AMB Hemoglobin A1c 6.1 % Last Edit by DARSHAN Smith on 03/31/24 10:52 Results Reviewed Results Reviewed: Laboratory Last Values Hgb A1c (Clinic) 6.1 % (4.0-6.0) H 03/31/24 10:35 Assessment and Plan Assessment & Plan (1) Class 2 severe obesity with body mass index (BMI) of 35 to 39.9 with serious comorbidity: Code(s): E66.01 - Morbid (severe) obesity due to excess calories Plan: Counseling and importance of diet and exercise explained. 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 Continue medications at same dosage. Orders: Orders AMB Hemoglobin A1c Today E11.9 - Type 2 diabetes mellitus without complications Coding Level of Care Code Est Pt Level 4 (47184) Diagnoses Class 2 severe obesity with body mass index (BMI) of 35 to 39.9 with serious comorbidity E66.01 Diabetes mellitus E11.9 Diabetes mellitus type: type 2 Diabetes mellitus snf insulin use: without terminal gauger supervisor use Diabetes mellitus complication status: with circulatory complication
[2024-03-31 10:37] VITALS: BP 142/62; PULSE 70; O2SAT 97; BMI 33.4
== END 2024-03-31 11:19 | disposition home or self-care (01) ==
PROVIDERS: PCP Internal Medicine; Visit Provider Internal Medicine
DX: E11.9 Type 2 diabetes mellitus without complications (principal); E66.01 Morbid (severe) obesity due to excess calories; Z68.33 Body mass index [BMI] 33.0-33.9, adult
CPT/HCPCS: 83036; 99214

== ENCOUNTER 2024-06-13 11:49 | Outpatient (REF) | payer MEDICARE, SELFPAY | END 2024-06-13 11:50 | disposition home or self-care (01) | LOC: HO.MAMMO 11:49 | PROVIDERS: PCP Internal Medicine; Visit Provider Internal Medicine | DX: Z12.31 Encounter for screening mammogram for malignant neoplasm of breast (principal) | CPT/HCPCS: 77063; 77067 ==

== ENCOUNTER → 2024-06-13 12:00 | Outpatient (BNV) | payer MEDICARE, SELFPAY | PROVIDERS: PCP Internal Medicine; Visit Provider Radiology Diagnostic Radiology | DX: Z12.31 Encounter for screening mammogram for malignant neoplasm of breast (principal) | CPT/HCPCS: 77063; 77067 ==

== ENCOUNTER 2024-10-06 09:59 | Outpatient (AMB) | payer MEDICARE, SELFPAY ==
--- NOTE | 2024-10-06 10:08 | A.OFFPC_ITS ---
Vital Signs 10/06/24 10:10 Height 5 ft 6 in Weight 194 lb BMI 31.3 BP 140/90 H Blood Pressure Location Lt brachial Position Sitting Pulse 94 Pulse Source Pulse Oximeter Pulse Oximetry (%) 97 Oxygen Delivery Method Room Air Intake Visit Reasons: 6mth f/u - see comments Intake Note: Patient is here to follow up on DM, HTN, Hypothyroidism, Hypercholesterolemia. Armature Winder Repair Required: No Director Of Assessing: Not Required per policy Accompanied by: Self / Same As Patient Allergies No Known Allergies [No Known Allergies*] Allergy (Verified 10/06/24 10:52) Medication List - Last Reconciled 10/06/24 by Pepe Marley MD amlodipine 10 mg PO DAILY blood pressure test kit-medium As directed celecoxib 200 mg PO DAILY clopidogrel 75 mg PO DAILY cyclobenzaprine 10 mg PO BEDTIME hydrochlorothiazide 25 mg PO DAILY levothyroxine 50 mcg PO DAILY lisinopril 20 mg PO BID multivit,rimmljj-fzl-mcpxz acd 200 mcg (One-A-Day Proactive 65 Plus) 2 tabs PO DAILY pioglitazone 30 mg PO DAILY Tobacco use date assessed: 10/06/24 Fall risk assessment: No Falls in past year Last assessed Fall Risk: 10/06/24 Dental Screening Dental Screen Date: 12/24/23 HPI 6mth f/u - see comments HPI Details 79-year-old female presents to the offic e to discuss her chronic medical conditions. Compliant with medications and reporting no side effects. Able to function and do all activities of daily living. [facility] Medical History Spinal stenosis, lumbar region with neurogenic claudication Class 2 severe obesity with body mass index (BMI) of 35 to 39.9 with serious comorbidity Hypercholesterolemia Diabetes mellitus Essential (primary) hypertension Surgical History History of left hip replacement History of back surgery History of intravascular stent placement History of surgery History of tonsillectomy and adenoidectomy Family History Father Heart disease Mother Intestinal hemorrhage Family/Other Heart disease Hypertension Social History Housing: House Alcohol intake: current Alcohol intake frequency: does not drink Patient Tobacco Use Status: Former Tobacco user (11 years ago) Tobacco use type: Cigarette e-Cigarette/Vaping Use: Never Used Second Hand Smoke Exposure: No service: No Current occupational status: retired Cognitive needs: Yes (walker) Hearing needs: No Vision needs: Yes (reading glasses) Questionnaire Thrive Questionnaire Date Thrive assessed: 12/24/23 AUDIT C Alcohol Use Questionnaire (AUDIT-C) 2. How many drinks containing alcohol do you have on a typical day when you are drinking?: 1 or 2 3. How often do you have six or more drinks on one occasion?: Never Total Score: 0 IRINA-7 AMB Questionnaire IRINA-7 Date IRINA - 7 assessed: 12/24/23 Source: Developed by Drs. Kirk Lizama, Katelynn Kent, Rene Cherry and colleagues, with an educational dulce from [employer]. Physical exam (Primary Care) Vital Signs: Last Vital Signs Pulse 94 10/06/24 10:10 BP 140/90 H 10/06/24 10:10 Pulse Ox 97 10/06/24 10:10 Oxygen Delivery Method Room Air 10/06/24 10:10 BMI result Body Mass Index 31.3 Tobacco/Smoking Status: Tobacco use Status Tobacco use date assessed 10/06/24 10/06/24 10:20 Patient Tobacco Use Status Former Tobacco user (11 10/06/24 10:20 years ago) Tobacco use type Cigarette 10/06/24 10:20 e-Cigarette/Vaping Use Never Used 10/06/24 10:20 Thrive Assessment: Date of Thrive Assessment Date Thrive assessed 12/24/23 10/06/24 10:20 Const General: cooperative and healthy appearing Nutritional Appearance: well nourished Orientation/consciousness: patient oriented x3 Limitations: no limitations HENMT Head: Yes normal to inspection Eyes General: appearance normal, both eyes and all related structures Neck Neck: Yes normal visual inspection Chest Chest palpation & inspection: normal palpation of entire chest wall Resp Effort & Inspection: normal respiratory effort Neuro General: patient oriented x3 Results AMB Hemoglobin A1c AMB Hemoglobin A1c 6.1 % Last Edit by DARSHAN Smith on 10/06/24 10:31 Results Reviewed Results Reviewed: Laboratory Last Values Hgb A1c (Clinic) 6.1 % (4.0-6.0) H 10/06/24 10:08 Coding Level of Care Code Est Pt Level 4 (97025) Complex EM visit Add On G2211 Diagnoses Essential (primary) hypertension I10 Hypercholesterolemia E78.00 Assessment & Plan Assessment & Plan (1) Essential (primary) hypertension: Code(s): I10 - Essential (primary) hypertension Category: Medical Plan: Blood pressure is in range. Continue medications at same dosage. (2) Hypercholesterolemia: Code(s): E78.00 - Pure hypercholesterolemia, unspecified Category: Medical Plan: LDL is in range Orders: Orders AMB Hemoglobin A1c Today E11.9 - Type 2 diabetes mellitus without complications Liver Panel Today E78.00 - Pure hypercholesterolemia, unspecified, I10 - Essential (primary) hypertension Basic Metabolic Panel Today E78.00 - Pure hypercholesterolemia, unspecified, I10 - Essential (primary) hypertension Complete Blood Count no Diff Today E78.00 - Pure hypercholesterolemia, unspecified, I10 - Essential (primary) hypertension Lipid Panel Today E78.00 - Pure hypercholesterolemia, unspecified, I10 - Essential (primary) hypertension Thyroid Stimulating Hormone Today E78.00 - Pure hypercholesterolemia, unspecified, I10 - Essential (primary) hypertension
[2024-10-06 10:10] VITALS: BP 140/90; PULSE 94; O2SAT 97; BMI 31.3
== END 2024-10-06 10:50 | disposition home or self-care (01) ==
LOC: HO.HMCH 10:00
PROVIDERS: PCP Internal Medicine; Visit Provider Internal Medicine
DX: I10 Essential (primary) hypertension (principal); E78.00 Pure hypercholesterolemia, unspecified; E11.9 Type 2 diabetes mellitus without complications

== ENCOUNTER → 2024-10-06 09:59 | Outpatient (BNVA) | payer MEDICARE, SELFPAY | PROVIDERS: PCP Internal Medicine; Visit Provider Internal Medicine | DX: I10 Essential (primary) hypertension (principal); E78.00 Pure hypercholesterolemia, unspecified; E11.9 Type 2 diabetes mellitus without complications | CPT/HCPCS: 83036; 99212 ==

== ENCOUNTER 2024-12-02 06:29 | Outpatient (REF) | payer MEDICARE, SELFPAY ==
[2024-12-02 08:07] LABS: Hematocrit 39.7 % (37.0-47.0); Hemoglobin 12.6 g/dl (12.0-16.0); Mean Corpuscular HGB Conc 31.7 g/dl (31.0-35.0); Mean Corpuscular Hemoglobin 32.6 pg (27.0-33.0); Mean Corpuscular Volume 102.8 fL (80.0-98.0); Mean Platelet Volume 9.4 fL (9.4-12.3); Platelet Count 237 X10*3/uL (160-400); Red Blood Count 3.86 X10*6/uL (4.20-5.50); Red Cell Distribution Width 12.9 % (11.0-16.0); White Blood Count 5.7 X10*3/uL (4.8-10.8)
[2024-12-02 08:58] LABS: Anion Gap 11 (12-20)
[2024-12-02 09:11] LABS: Alanine Aminotransferase 14 U/L (0-31); Albumin Level 4.1 g/dL (3.5-5.0); Aspartate Amino Transferase 20 U/L (5-31); Bilirubin Direct 0.1 mg/dL (0.0-0.5); Bilirubin Total 0.5 mg/dL (0.0-1.0); Blood Urea Nitrogen 34 mg/dL (9-16); Calcium 9.5 mg/dL (8.4-10.2); Carbon Dioxide 28 mmol/L (22-29); Chloride 106 mmol/L (96-108); Cholesterol 239 mg/dL (<200); Estimated Glomerular Filt Rate 49; Glucose Random 113 mg/dL (60-115); HDL Cholesterol 65 mg/dL (>40); LDL Cholesterol Calculated 139 mg/dL (<100); Potassium 3.9 mmol/L (3.3-5.1); Sodium 141 mmol/L (135-145); Total Protein 7.4 g/dL (6.5-8.0); Triglycerides 176 mg/dL (<150)
[2024-12-02 09:33] LABS: Alkaline Phosphatase 67 U/L (39-117); Thyroid Stimulating Hormone 3.35 uIU/mL (0.32-4.0)
== END 2024-12-02 06:30 | disposition home or self-care (01) ==
LOC: HO.LAB 06:29
PROVIDERS: PCP Internal Medicine; Visit Provider Internal Medicine
DX: I10 Essential (primary) hypertension (principal); E78.00 Pure hypercholesterolemia, unspecified
CPT/HCPCS: 36415; 80048; 80061; 80076; 84443; 85027

== ENCOUNTER 2025-01-26 14:16 | Outpatient (AMB) | payer MEDICARE, SELFPAY ==
--- NOTE | 2025-01-26 14:57 | A.OFFPC_ITS ---
Vital Signs 01/26/25 14:58 Height 5 ft 6 in Weight 193 lb 4 oz BMI 31.2 BP 132/82 Blood Pressure Location Lt brachial Position Sitting Pulse 82 Pulse Source Pulse Oximeter Temp 97.5 F Temp Source Temporal Artery Scan Pulse Oximetry (%) 97 Oxygen Delivery Method Room Air Intake Visit Reasons: annual exam - see comments Intake Note: Patient is here today for a physical. Range Conservationist Required: No Visitor Services Specialist: Not Required per policy Accompanied by: Self / Same As Patient Allergies No Known Allergies [No Known Allergies*] Allergy (Verified 01/27/25 20:28) Medication List - Last Reconciled 01/26/25 by Pepe Marley MD amlodipine 10 mg PO DAILY blood pressure test kit-medium As directed celecoxib 200 mg PO DAILY clopidogrel 75 mg PO DAILY cyclobenzaprine 10 mg PO BEDTIME hydrochlorothiazide 25 mg PO DAILY levothyroxine 50 mcg PO DAILY lisinopril 20 mg PO BID multivit,jpxjlyc-uzn-aoaht acd 200 mcg (One-A-Day Proactive 65 Plus) 2 tabs PO DAILY pioglitazone 30 mg PO DAILY Tobacco use date assessed: 01/26/25 Fall risk assessment: No Falls in past year Last assessed Fall Risk: 01/26/25 Dental Screening Dental Screen Date: 01/26/25 Did you have a dental visit in the last 12 months?: No Did you have a dental problem in the last 6 months where you did not have access to dental care?: No Was dental information given to patient?: No (Dentures) HPI annual exam - see comments HPI Details 79 yr [facility] Medical History Spinal stenosis, lumbar region with neurogenic claudication Class 2 severe obesity with body mass index (BMI) of 35 to 39.9 with serious comorbidity Hypercholesterolemia Diabetes mellitus Essential (primary) hypertension Surgical History History of left hip replacement History of back surgery History of intravascular stent placement History of surgery History of tonsillectomy and adenoidectomy Family History Father Heart disease Mother Intestinal hemorrhage Family/Other Heart disease Hypertension Social History Housing: House Alcohol intake: current Alcohol intake frequency: does not drink Patient Tobacco Use Status: Former Tobacco user (11 years ago) Tobacco use type: Cigarette e-Cigarette/Vaping Use: Never Used Second Hand Smoke Exposure: No service: No Current occupational status: retired Cognitive needs: Yes (walker) Hearing needs: No Vision needs: Yes (reading glasses) Questionnaire PHQ-9 Over the last 2 weeks, how often have you been bothered by any of the following problems? 1. Little interest or pleasure in doing things: not at all 2. Feeling down, depressed, or hopeless: not at all 3. Trouble falling or staying asleep, or sleeping too much: not at all 4. Feeling tired or having little energy: not at all 5. Poor appetite or overeating: not at all 6. Feeling bad about yourself - or that you are a failure or have let yourself or your family down: not at all 7. Trouble concentrating on things, such as reading the newspaper or watching television: not at all 8. Moving or speaking so slowly that other people could have noticed. Or the opposite - being so fidgety or restless that you have been moving around a lot more than usual: not at all 9. Thoughts that you would be better off or of hurting yourself in some way: not at all Total score: 0 Depression Screening Interpretation: Negative Depression Screening Done: Yes Source: Developed by Drs. Kirk Lizama, Katelynn Kent, Rene Cherry and colleagues, with an educational dulce from [employer]. Thrive Questionnaire Date Thrive assessed: 01/19/25 I am a: Patient What is your living situation today?: I have a steady place to live Within the past 12 months, did the food you bought not last and you didn't have the money to get more?: Never true Within the past 12 months, did you worry whether your food would run out before you got money to buy more?: Never true Do you have trouble paying for medicines?: No Do you have trouble getting transportation to medical appointments?: No Do you have trouble paying your heating and electricity bill?: No Do you have trouble taking care of your child, family member or friend?: No Do you have trouble with day-to-day activities such as bathing, preparing meals, shopping, managing finances, etc.?: No Are you currently unemployed and looking for a job?: No Are you interested in more education?: No Please select the resources that you would like help with: None Currently or been in a relationship where the following occur: No concerns reported THRIVE Score: 0 AUDIT C Alcohol Use Questionnaire (AUDIT-C) 1. How often do you have a drink containing alcohol?: Monthly or less 2. How many drinks containing alcohol do you have on a typical day when you are drinking?: 1 or 2 3. How often do you have six or more drinks on one occasion?: Never Total Score: 1 IRINA-7 AMB Questionnaire IRINA-7 Date IRINA - 7 assessed: 01/26/25 Feeling nervous, anxious, or on edge: 0 = Not at all Not being able to stop or control worryin = Not at all Worrying too much about different things: 0 = Not at all Trouble relaxin = Not at all Being so restless that it is hard to sit still: 0 = Not at all Becoming easily annoyed or irritable: 0 = Not at all Feeling afraid as if something awful might happen: 0 = Not at all Total IRINA-7 score (0-4 normal; 5-9 mild; 10-14 moderate; 15-21 severe): 0 Source: Developed by Drs. Kirk Lizama, Katelynn Kent, Rene Cherry and colleagues, with an educational dulce from [employer]. Physical exam (Primary Care) Vital Signs: Last Vital Signs Temp 97.5 F 01/26/25 14:58 Pulse 82 01/26/25 14:58 BP 132/82 01/26/25 14:58 Pulse Ox 97 01/26/25 14:58 Oxygen Delivery Method Room Air 01/26/25 14:58 Care Plan Goal for BP management: BP in range. BMI result Body Mass Index 31.2 Tobacco/Smoking Status: Tobacco use Status Tobacco use date assessed 01/26/25 01/26/25 16:03 Patient Tobacco Use Status Former Tobacco user (11 01/26/25 16:03 years ago) Tobacco use type Cigarette 01/26/25 16:03 e-Cigarette/Vaping Use Never Used 01/26/25 16:03 PHQ-9: PHQ-9 Score PHQ-9: Total score 0 01/26/25 16:03 Depression Screening Interpretation: Negative Thrive Assessment: Date of Thrive Assessment Date Thrive assessed 01/19/25 01/26/25 16:03 Currently or been in a relationship where the following occur: No concerns reported Const General: cooperative and healthy appearing Nutritional Appearance: well nourished Orientation/consciousness: patient oriented x3 Limitations: no limitations HENMT Head: Yes normal to inspection Eyes General: appearance normal, both eyes and all related structures Neck Neck: Yes normal visual inspection Chest Chest palpation & inspection: normal palpation of entire chest wall Resp Effort & Inspection: normal respiratory effort Neuro General: patient oriented x3 Results AMB Hemoglobin A1c AMB Hemoglobin A1c 6.1 % Last Edit by DARSHAN Smith on 01/26/25 15:12 Results Reviewed Results Reviewed: Laboratory Last Values Hgb A1c (Clinic) 6.1 % (4.0-6.0) H 01/26/25 14:59 Coding Level of Care Code Complex EM visit Add On G2211 Diagnoses Essential (primary) hypertension I10 Diabetes mellitus E11.9 Diabetes mellitus type: type 2 Diabetes mellitus correction insulin use: without correction use Diabetes mellitus complication status: with circulatory complication Class 2 severe obesity with body mass index (BMI) of 35 to 39.9 with serious comorbidity E66.01 Annual physical exam Z00.00 Assessment & Plan Assessment & Plan (1) Essential (primary) hypertension: Code(s): I10 - Essential (primary) hypertension Category: Medical Plan: BP stable. Continue meds at same dosage. 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
[2025-01-26 14:58] VITALS: BP 132/82; PULSE 82; TEMP 36.4; O2SAT 97; BMI 31.2
--- NOTE | 2025-01-26 15:00 | MHC.PC.OV ---
Vital Signs 01/26/25 14:58 Height 5 ft 6 in Weight 193 lb 4 oz BMI 31.2 BP 132/82 Blood Pressure Location Lt brachial Position Sitting Pulse 82 Pulse Source Pulse Oximeter Temp 97.5 F Temp Source Temporal Artery Scan Pulse Oximetry (%) 97 Oxygen Delivery Method Room Air Intake Visit Reasons: annual exam - see comments Allergies No Known Allergies [No Known Allergies*] Allergy (Verified 01/26/25 16:00) Medication List - Last Reconciled 01/26/25 by Pepe Marley MD amlodipine 10 mg PO DAILY blood pressure test kit-medium As directed celecoxib 200 mg PO DAILY clopidogrel 75 mg PO DAILY cyclobenzaprine 10 mg PO BEDTIME hydrochlorothiazide 25 mg PO DAILY levothyroxine 50 mcg PO DAILY lisinopril 20 mg PO BID multivit,wqqjyxt-fid-knkse acd 200 mcg (One-A-Day Proactive 65 Plus) 2 tabs PO DAILY pioglitazone 30 mg PO DAILY Tobacco use date assessed: 01/26/25 Dental Screening Dental Screen Date: 01/26/25 Did you have a dental visit in the last 12 months?: Yes Did you have a dental problem in the last 6 months where you did not have access to dental care?: No Was dental information given to patient?: Patient has dentist HPI annual exam - see comments HPI Details 79-year-old female presents to the office for an annual physical exam. [facility] Medical History Spinal stenosis, lumbar region with neurogenic claudication Class 2 severe obesity with body mass index (BMI) of 35 to 39.9 with serious comorbidity Hypercholesterolemia Diabetes mellitus Essential (primary) hypertension Surgical History History of left hip replacement History of back surgery History of intravascular stent placement History of surgery History of tonsillectomy and adenoidectomy Family History Father Heart disease Mother Intestinal hemorrhage Family/Other Heart disease Hypertension Social History Housing: House Alcohol intake: current Alcohol intake frequency: does not drink Patient Tobacco Use Status: Former Tobacco user (11 years ago) Tobacco use type: Cigarette e-Cigarette/Vaping Use: Never Used Second Hand Smoke Exposure: No service: No Current occupational status: retired Cognitive needs: Yes (walker) Hearing needs: No Vision needs: Yes (reading glasses) Questionnaire PHQ-9 Over the last 2 weeks, how often have you been bothered by any of the following problems? 1. Little interest or pleasure in doing things: not at all 2. Feeling down, depressed, or hopeless: not at all 3. Trouble falling or staying asleep, or sleeping too much: not at all 4. Feeling tired or having little energy: not at all 5. Poor appetite or overeating: not at all 6. Feeling bad about yourself - or that you are a failure or have let yourself or your family down: not at all 7. Trouble concentrating on things, such as reading the newspaper or watching television: not at all 8. Moving or speaking so slowly that other people could have noticed. Or the opposite - being so fidgety or restless that you have been moving around a lot more than usual: not at all 9. Thoughts that you would be better off or of hurting yourself in some way: not at all Total score: 0 Depression Screening Interpretation: Negative Depression Screening Done: Yes Source: Developed by Drs. Kirk Lizama, Katelynn Kent, Rene Cherry and colleagues, with an educational dulce from [employer]. Thrive Questionnaire Date Thrive assessed: 01/19/25 I am a: Patient What is your living situation today?: I have a steady place to live Within the past 12 months, did the food you bought not last and you didn't have the money to get more?: Never true Within the past 12 months, did you worry whether your food would run out before you got money to buy more?: Never true Do you have trouble paying for medicines?: No Do you have trouble getting transportation to medical appointments?: No Do you have trouble paying your heating and electricity bill?: No Do you have trouble taking care of your child, family member or friend?: No Do you have trouble with day-to-day activities such as bathing, preparing meals, shopping, managing finances, etc.?: No Are you currently unemployed and looking for a job?: No Are you interested in more education?: No Please select the resources that you would like help with: None Currently or been in a relationship where the following occur: No concerns reported THRIVE Score: 0 AUDIT C Alcohol Use Questionnaire (AUDIT-C) 1. How often do you have a drink containing alcohol?: Monthly or less 2. How many drinks containing alcohol do you have on a typical day when you are drinking?: 1 or 2 3. How often do you have six or more drinks on one occasion?: Never Total Score: 1 IRINA-7 AMB Questionnaire IRINA-7 Date IRINA - 7 assessed: 01/26/25 Feeling nervous, anxious, or on edge: 0 = Not at all Not being able to stop or control worryin = Not at all Worrying too much about different things: 0 = Not at all Trouble relaxin = Not at all Being so restless that it is hard to sit still: 0 = Not at all Becoming easily annoyed or irritable: 0 = Not at all Feeling afraid as if something awful might happen: 0 = Not at all Total IRINA-7 score (0-4 normal; 5-9 mild; 10-14 moderate; 15-21 severe): 0 Source: Developed by Drs. Kirk Lizama, Katelynn Kent, Rene Cherry and colleagues, with an educational dulce from [employer]. Physical exam (Primary Care) Vital Signs: Last Vital Signs Temp 97.5 F 01/26/25 14:58 Pulse 82 01/26/25 14:58 BP 132/82 01/26/25 14:58 Pulse Ox 97 01/26/25 14:58 Oxygen Delivery Method Room Air 01/26/25 14:58 BMI result Body Mass Index 31.2 Tobacco/Smoking Status: Tobacco use Status Tobacco use date assessed 01/26/25 01/26/25 14:59 Patient Tobacco Use Status Former Tobacco user (11 01/26/25 14:59 years ago) Tobacco use type Cigarette 01/26/25 14:59 e-Cigarette/Vaping Use Never Used 01/26/25 14:59 PHQ-9: PHQ-9 Score PHQ-9: Total score 0 01/26/25 15:07 Depression Screening Interpretation: Negative Thrive Assessment: Date of Thrive Assessment Date Thrive assessed 01/19/25 01/26/25 14:59 Currently or been in a relationship where the following occur: No concerns reported Const General: cooperative and healthy appearing Nutritional Appearance: well nourished Orientation/consciousness: patient oriented x3 Limitations: no limitations HENMT Head: Yes normal to inspection Eyes General: appearance normal, both eyes and all related structures Neck Neck: Yes normal visual inspection Chest Chest palpation & inspection: normal palpation of entire chest wall Resp Effort & Inspection: normal respiratory effort Neuro General: patient oriented x3 Results AMB Hemoglobin A1c AMB Hemoglobin A1c 6.1 % Last Edit by DARSAHN Smith on 01/26/25 15:12 Results Reviewed Results Reviewed: Laboratory Last Values Hgb A1c (Clinic) 6.1 % (4.0-6.0) H 01/26/25 14:59 Coding Level of Care Code Est Pt Prev Care >65y(26499) Diagnoses Annual physical exam Z00.00 Assessment & Plan Assessment & Plan (1) Annual physical exam: Code(s): Z00.00 - Encounter for general adult medical examination without abnormal findings Category: Medical Plan: Blood work reviewed. Patient is scheduled for intra-articular injection in the spine in the coming weeks. Orders: Orders AMB Hemoglobin A1c Today E11.9 - Type 2 diabetes mellitus without complications
== END 2025-01-26 16:13 | disposition home or self-care (01) ==
PROVIDERS: PCP Internal Medicine; Visit Provider Internal Medicine
DX: Z00.00 Encounter for general adult medical examination without abnormal findings (principal); E11.9 Type 2 diabetes mellitus without complications

== ENCOUNTER → 2025-01-26 14:16 | Outpatient (BNVA) | payer MEDICARE, SELFPAY | PROVIDERS: PCP Internal Medicine; Visit Provider Internal Medicine | DX: Z00.00 Encounter for general adult medical examination without abnormal findings (principal); E11.9 Type 2 diabetes mellitus without complications | CPT/HCPCS: 83036; 99397 ==

== ENCOUNTER 2025-05-29 10:31 | Outpatient (AMB) | payer MEDICARE, SELFPAY ==
[2025-05-29 11:03] VITALS: BP 144/60; PULSE 98; TEMP 37.1; O2SAT 94
--- NOTE | 2025-05-29 11:03 | AM.OFFWIN_ITS ---
Intake Vital Signs 05/29/25 11:03 Height 5 ft 6 in BP 144/60 H Blood Pressure Location Lt brachial Position Sitting Pulse 98 Pulse Source Pulse Oximeter Temp 98.8 F Temp Source Oral Pulse Oximetry (%) 94 Oxygen Delivery Method Room Air Intake Visit Reasons: EP Head cold, ears blocked, sore throat, cough Patient Tobacco Use Status: Former Tobacco user (11 years ago) Allergies No Known Allergies (No Known Allergies*) Allergy (Verified 05/29/25 11:08) Do you need a note to return to daycare/school/sports/work: No HPI HPI Comments History of Present Illness Details 80 y/o Female patient who presents to [facility] walk in [facility] with c/o URI symptoms for 2 days now. Pt c/o Left ear pain, nasal congestion/pressure and Tearing eyes. Denies fevers or chills. Denies Nausea or vomiting. [facility] Medical History (Updated 05/29/25 @ 11:53 by Jill Amaya NP) Acute respiratory disease Impacted cerumen of left ear Spinal stenosis, lumbar region with neurogenic claudication Class 2 severe obesity with body mass index (BMI) of 35 to 39.9 with serious comorbidity Hypercholesterolemia Diabetes mellitus Essential (primary) hypertension Surgical History History of left hip replacement History of back surgery History of intravascular stent placement History of surgery History of tonsillectomy and adenoidectomy Family History Father Heart disease Mother Intestinal hemorrhage Family/Other Heart disease Hypertension Social History Housing: House Alcohol intake: current Alcohol intake frequency: does not drink Patient Tobacco Use Status: Former Tobacco user (11 years ago) Tobacco use type: Cigarette e-Cigarette/Vaping Use: Never Used Second Hand Smoke Exposure: No service: No Current occupational status: retired Cognitive needs: Yes (walker) Hearing needs: No Vision needs: Yes (reading glasses) Review of Systems Const All systems reviewed & are unremarkable except as noted in HPI and below Physical Exam Vital Signs: Last Vital Signs Temp 98.8 F 05/29/25 11:03 Pulse 98 05/29/25 11:03 BP 144/60 H 05/29/25 11:03 Pulse Ox 94 05/29/25 11:03 Oxygen Delivery Method Room Air 05/29/25 11:03 Const General: no acute distress Nutritional Appearance: obese Orientation/consciousness: patient oriented x3 HEENT Head: Yes normocephalic Ears: external ears normal, TM abnormal with fluid behind the TM on the right and unable to visualize TM on the left (Cerumen impaction ) General nose exam: Normal external nose present Face and sinus: Yes sinuses nontender Mouth: moist mucous membranes Throat: Yes uvula midline Resp Effort & Inspection: normal respiratory effort and able to speak in complete sentences Auscultation: clear to auscultation bilaterally, no crackles, no rales, no rhonchi and no wheezes Cardio Heart sounds: S1 normal heart sound present and S2 normal heart sound present Neuro General: patient oriented x3 Office Procedures Cerumen Removal From which ear canal was the cerumen removed: left Removal: irrigation Notes: no complications (Procedure stopped due to pain. Unable to complete process) [id number] Irrigation/Lavage Assessment & Plan Assessment & Plan (1) Impacted cerumen of left ear: Code(s): H61.22 - Impacted cerumen, left ear Plan: Attempted Ear Lavage, but Pt unable to tolerate procedure due to pain. Ordered Debrox Drops BID for 7 days. Acetaminophen for pain relief. (2) Acute respiratory disease: Code(s): J06.9 - Acute upper respiratory infection, unspecified Plan: Rest and hydrate well Acetaminophen for pain relief. OTC cold remedies. Coding Level of Care Code Est Pt Level 4 (18696) Diagnoses Impacted cerumen of left ear H61.22 Acute respiratory disease J06.9 CPT Codes Office Procedure - CPT: 68211-Uds Irrigation/Lavage ([id number]) Time Spent (min) 20
== END 2025-05-29 11:58 | disposition home or self-care (01) ==
PROVIDERS: PCP Internal Medicine; Visit Provider Nurse Practitioner Family
DX: H61.22 Impacted cerumen, left ear (principal); J06.9 Acute upper respiratory infection, unspecified

== ENCOUNTER → 2025-05-29 10:31 | Outpatient (BNVA) | payer MEDICARE, SELFPAY | PROVIDERS: PCP Internal Medicine; Visit Provider Nurse Practitioner Family | DX: H61.22 Impacted cerumen, left ear (principal); J06.9 Acute upper respiratory infection, unspecified | CPT/HCPCS: 69209; 99212 ==

== ENCOUNTER 2025-06-21 12:23 | Outpatient (REF) | payer MEDICARE, SELFPAY ==
--- OUTSIDE RECORDS SUMMARY | 2025-06-21 12:50 | XMS_ITS | Encounter Summary ---
Author Organization [facility] Address [address] [facility] [address] [place] [address] Phone Care Team Providers Care Vp Clinical Name Role Phone Tino Martinez MD Primary Care Provider [phone] Encounter Details Date Type Department Care Team (Late st Contact Info) Description 11/04/2017 Ancillary Orders [facility] [address] [place] [id number] Leonidas Orellana MD [address] [place] [id number] [email or web address] Bilateral hip pain Social History Tobacco Use Types Packs/Day Years Used Date Smoking Tobacco: Former Cigarettes Q uit: 2006 Smokeless Tobacco: Never Alcohol Use Standard Drinks/Week Comments No 0 (1 standard drink = 0.6 oz pur e alcohol) Comments Unknown Sex and Gender Information Value Date Recorded Sex Assigned at Not on file Legal Sex Female 12:20 PM EST Gender Identity Not on file Sexual Orientation Not on file documented as of this encounter Plan of Treatment Not on file documented as of this encounter Results * XR HIPS 1 VW EA BILAT PLUS PELVIS (11/04/2017 9:36 AM EST) Narrative Manjitseralauren Mallory - 11/04/2017 9:36 AM EST This image report has been auto-finalized and has not been read by a Radiologist. Interpretation has been included in the provider encounter note for this date of service. us Leonidas Orellana MD IMG XR PELVIS Final Res ult documented in this encounter Visit Diagnoses Diagnosis Bilateral hip pain Pain in joint, pelvic region and thigh Bilateral hip pain Pain in joint, pelvic region and thigh documented in this encounter Care Teams Vp Clinical Relationship Specialty Start Date End Date Tino Martinez MD [address] [place] [address] Dr Ambrose [address] [place] [address], [place] [address] PCP - General Internal Medicine 10/07/17 documented as of this encounter Additional Source Comments The information contained in this document represents components of the legal health record. It is not the complete legal health record.[facility]
== END 2025-06-21 12:24 | disposition home or self-care (01) ==
LOC: HO.MAMMO 12:23
PROVIDERS: Visit Provider Internal Medicine
DX: Z12.31 Encounter for screening mammogram for malignant neoplasm of breast (principal)
CPT/HCPCS: 77063; 77067

== ENCOUNTER → 2025-06-21 12:45 | Outpatient (BNV) | payer MEDICARE, SELFPAY | PROVIDERS: Visit Provider Radiology Body Imaging | DX: Z12.31 Encounter for screening mammogram for malignant neoplasm of breast (principal) | CPT/HCPCS: 77063; 77067 ==

== ENCOUNTER 2025-08-23 13:22 | Outpatient (AMB) | payer MEDICARE, SELFPAY ==
--- NOTE | 2025-08-23 13:22 | MHC.PC.OV ---
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 Required: No Accompanied by: Self / Same As Patient Allergies No Known Allergies (No Known Allergies*) Allergy (Verified 08/23/25 13:53) Medication List - Last Reconciled 08/23/25 by Alee Camarena PA-C amlodipine 10 mg PO DAILY aspirin 81 mg PO DAILY blood pressure test kit-medium As directed clopidogrel 75 mg PO DAILY hydrochlorothiazide 25 mg PO DAILY levothyroxine 50 mcg PO DAILY lisinopril 20 mg PO BID multivit,gjlutqe-mnt-rmhpo acd 200 mcg (One-A-Day Proactive 65 Plus) 2 tabs PO DAILY pioglitazone 30 mg PO DAILY Tobacco use date assessed: 08/23/25 Dental Screening Dental Screen Date: 01/26/25 HPI 6 month follow up HPI Details The patient is a 80-year-old female presenting with a routine check-up and evaluation of ear drainage. The patient has a history of hypertension, managed with amlodipine and lisinopril. Blood pressure was recorded at 158/67 mmHg during the visit, indicating suboptimal control. The patient has been diagnosed with Type 2 Diabetes Mellitus, currently managed with Actos 30 mg. Her last HbA1c was 6.1%, suggesting good glycemic control. A plan to discontinue Actos was discussed, with monitoring of blood glucose levels and dietary modifications. The patient also has hyperlipidemia, with a total cholesterol of 239 mg/dL, LDL cholesterol of 139 mg/dL, and triglycerides of 176 mg/dL. She has declined statin therapy and prefers not to take cholesterol-lowering medications. The patient reported ear drainage for two weeks, with a possible infection noted during examination. She has a history of ear infections and was prescribed eardrops and oral antibiotics. Social History - Nutrition: Reports eating more or less good diet. [facility] Medical History (Updated 08/23/25 @ 16:09 by Alee Camarena PA-C) Acute otitis media Acute otitis externa Acute respiratory disease Impacted cerumen of left ear Spinal stenosis, lumbar region with neurogenic claudication Class 2 severe obesity with body mass index (BMI) of 35 to 39.9 with serious comorbidity Hypercholesterolemia Diabetes mellitus Essential (primary) hypertension Surgical History History of left hip replacement History of back surgery History of intravascular stent placement History of surgery History of tonsillectomy and adenoidectomy Family History Father Heart disease Mother Intestinal hemorrhage Family/Other Heart disease Hypertension Social History Housing: House Alcohol intake: current Alcohol intake frequency: does not drink Patient Tobacco Use Status: Former Tobacco user Tobacco use type: Cigarette e-Cigarette/Vaping Use: Never Used Second Hand Smoke Exposure: No service: No Current occupational status: retired Cognitive needs: Yes (walker) Hearing needs: No Vision needs: Yes (reading glasses) Questionnaire PHQ-9 Over the last 2 weeks, how often have you been bothered by any of the following problems? 1. Little interest or pleasure in doing things: not at all 2. Feeling down, depressed, or hopeless: not at all 3. Trouble falling or staying asleep, or sleeping too much: not at all 4. Feeling tired or having little energy: not at all 5. Poor appetite or overeating: not at all 6. Feeling bad about yourself - or that you are a failure or have let yourself or your family down: not at all 7. Trouble concentrating on things, such as reading the newspaper or watching television: not at all 8. Moving or speaking so slowly that other people could have noticed. Or the opposite - being so fidgety or restless that you have been moving around a lot more than usual: not at all 9. Thoughts that you would be better off or of hurting yourself in some way: not at all Total score: 0 Depression Screening Interpretation: Negative Depression Screening Done: Yes 99180 - PHQ-9 Billing: Yes Source: Developed by Drs. Kirk Lizama, Katelynn Kent, Rene Cherry and colleagues, with an educational dulce from [employer]. Thrive Questionnaire Date Thrive assessed: 01/19/25 I am a: Patient What is your living situation today?: I have a steady place to live Within the past 12 months, did the food you bought not last and you didn't have the money to get more?: Never true Within the past 12 months, did you worry whether your food would run out before you got money to buy more?: Never true Do you have trouble paying for medicines?: No Do you have trouble getting transportation to medical appointments?: No Do you have trouble paying your heating and electricity bill?: No Do you have trouble taking care of your child, family member or friend?: No Do you have trouble with day-to-day activities such as bathing, preparing meals, shopping, managing finances, etc.?: No Are you currently unemployed and looking for a job?: No Are you interested in more education?: No Please select the resources that you would like help with: None Currently or been in a relationship where the following occur: No concerns reported THRIVE Score: 0 AUDIT C Alcohol Use Questionnaire (AUDIT-C) 1. How often do you have a drink containing alcohol?: Monthly or less 2. How many drinks containing alcohol do you have on a typical day when you are drinking?: 1 or 2 3. How often do you have six or more drinks on one occasion?: Never Total Score: 1 Score Reviewed/Action Taken: No IRINA-7 AMB Questionnaire IRINA-7 Date IRINA - 7 assessed: 01/26/25 Feeling nervous, anxious, or on edge: 0 = Not at all Not being able to stop or control worryin = Not at all Worrying too much about different things: 0 = Not at all Trouble relaxin = Not at all Being so restless that it is hard to sit still: 0 = Not at all Becoming easily annoyed or irritable: 0 = Not at all Feeling afraid as if something awful might happen: 0 = Not at all Total IRINA-7 score (0-4 normal; 5-9 mild; 10-14 moderate; 15-21 severe): 0 Source: Developed by Drs. Kirk Lizama, Katelynn Kent, Rene Cherry and colleagues, with an educational dulce from [employer]. IRINA-7 Assessment Billing IRINA-7 Assessment Tool: IRINA-7 Assessment 76353 Review of Systems Const Details: - General: Denies dizziness, chest pain, abdominal pain, black or bloody stools, recent falls. - Cardiovascular: Denies chest pain. - Gastrointestinal: Denies abdominal pain, black or bloody stools. - Genitourinary: Denies issues with urination. - Neurological: Denies dizziness. - Ear, Nose, Throat: Reports ear drainage for two weeks. All systems reviewed & are unremarkable except as noted in HPI and below Physical exam (Primary Care) Vital Signs: Last Vital Signs Temp 97.9 F 08/23/25 13:27 Pulse 84 08/23/25 13:27 Resp 16 08/23/25 13:27 BP 158/67 H 08/23/25 13:27 Pulse Ox 96 08/23/25 13:27 Oxygen Delivery Method Room Air 08/23/25 13:27 Care Plan Goal for BP management: <140/90 patient will return in 2 weeks for blood pressure check she will continue amlodipine 10 mg daily, hydrochlorothiazide 25 mg daily, lisinopril 20 mg b.i.d. BMI result Body Mass Index 34.8 BMI Assessment/Plan discussion: High BMI High, discussed plan: lifestyle, weight reduction, dietary, physical activity, alcohol moderation and other Tobacco/Smoking Status: Tobacco use Status Tobacco use date assessed 08/23/25 08/23/25 13:24 Patient Tobacco Use Status Former Tobacco user 08/23/25 13:24 Tobacco use type Cigarette 08/23/25 13:24 e-Cigarette/Vaping Use Never Used 08/23/25 13:24 PHQ-9: PHQ-9 Score PHQ-9: Total score 0 08/23/25 14:02 Depression Screening Interpretation: Negative Thrive Assessment: Date of Thrive Assessment Date Thrive assessed 01/19/25 08/23/25 13:24 Currently or been in a relationship where the following occur: No concerns reported Const Other: Appearance: Alert. Oriented X3. No acute distress. Head: Normal external exam. Normocephalic. Atraumatic. Eyes: Pupils are equal, round, and reactive to light. Extraocular movements intact. Conjunctiva and sclera normal. Eyelids normal. Ears: Patient's right external ear canal with drainage noted consistent with otitis externa. Tympanic membrane is intact although erythematous and bulging consistent with otitis media. Left tympanic membrane and external ear canal within normal limits. No tenderness, erythema or swelling over the mastoids. Not consistent with mastoiditis. Throat: Pharynx normal. Uvula midline. Moist mucous membranes. Neck: Normal inspection. Neck supple. Full range of motion. No adenopathy. No meningeal signs. No neck mass noted. Cardiovascular: Normal heart rate and rhythm. Heart sound normal. No murmurs noted. Pulses normal throughout. Respiratory: No respiratory distress. Painless inspiration. Breath sounds normal. No wheezes/rales/rhonchi noted. Chest nontender. No accessory muscle usage noted or decreased air movement noted. Back: Full range of motion noted. Skin: Skin warm and dry. Normal skin color. Normal skin turgor. No rashes/lesions/lacerations noted. Extremities: Extremities exhibit normal range of motion. Neuro: Oriented X 3. No motor deficit. No sensory deficit. Reflexes normal. Office Procedures Flu Questionnaire Does the patient have a severe egg allergy?: No Does the patient have severe life threatening allergies?: No Does the patient have a fever or illness today?: No Has the patient ever had Guillain-Macon Syndrome?: No Has the patient ever had any past reaction to a flu shot?: No Results AMB Hemoglobin A1c AMB Hemoglobin A1c 6.1 % Last Edit by DARSHAN Davila on 08/23/25 14:02 Immunizations Fluarix [id number] (PF) 45 mcg (15 mcg x 3)/0.5 mL IM syringe Performing Provider: Alee Camarena PA-C [facility] Administered by: DARSHAN Davila on 08/23/25 13:34 Dose Route Admin Location Dispensed Lot Number Expiration Date [facility] Certified Physical Therapist Assistant 0.5 mL IM Left Deltoid 0.5 mL [id number] 05/29/27 [id number] [employer] VIS Given Date VIS Provided VIS Publication Date 08/23/25 Single Vaccine 24 Eligibility Eligibility Date Funding Source Not [facility] Eligible 08/23/25 Private Results Reviewed Results Reviewed: Laboratory Last Values Hgb A1c (Clinic) 6.1 % (4.0-6.0) H 08/23/25 13:57 - Labs: HbA1c 6.1% (December), Total cholesterol 239 mg/dL, LDL cholesterol 139 mg/dL, Triglycerides 176 mg/dL. Coding Level of Care Code Est Pt Level 4 (24320) Complex EM visit Add On G2211 Diagnoses Essential (primary) hypertension I10 Diabetes mellitus E11.9 Diabetes mellitus type: type 2 Diabetes mellitus mcfp insulin use: without mcfp use Diabetes mellitus complication status: with circulatory complication Hypercholesterolemia E78.00 Acute otitis externa H60.509 Acute otitis media H66.90 Additional Codes IRINA-7 Assessment Billing - IRINA-7 Assessment Tool: IRINA-7 Assessment 24588 ([id number]) PHQ-9 - 83856 - PHQ-9 Billing: Yes ([id number]) Time Spent (min) 50 Assessment & Plan Assessment & Plan (1) Essential (primary) hypertension: Code(s): I10 - Essential (primary) hypertension Category: Medical Plan: The patient's blood pressure was recorded at 158/67 mmHg, indicating suboptimal control. The plan includes monitoring blood pressure at home and returning for a follow-up in two weeks to reassess. (2) Diabetes mellitus: Code(s): E11.9 - Type 2 diabetes mellitus without complications Category: Medical Qualifiers: Diabetes mellitus type: type 2 Diabetes mellitus salvage determiner insulin use: without mcfp use Diabetes mellitus complication status: with circulatory complication Plan: The patient's HbA1c was 6.1%, indicating good glycemic control. A plan to discontinue Actos was discussed, with dietary modifications and monitoring of blood glucose levels. (3) Hypercholesterolemia: Code(s): E78.00 - Pure hypercholesterolemia, unspecified Category: Medical Plan: The patient has elevated cholesterol levels but has declined statin therapy. No alternative cholesterol-lowering medications were desired by the patient. (4) Acute otitis externa: Code(s): H60.509 - Unspecified acute noninfective otitis externa, unspecified ear Category: Medical Plan: The patient reported ear drainage for two weeks, and examination suggested a possible infection. The plan includes prescribing eardrops and oral antibiotics, with a follow-up in two weeks to reassess. (5) Acute otitis media: Code(s): H66.90 - Otitis media, unspecified, unspecified ear Category: Medical Plan: The patient reported ear drainage for two weeks, and examination suggested a possible infection. The plan includes prescribing eardrops and oral antibiotics, with a follow-up in two weeks to reassess. Plan Plan Patient was informed and verbally consented to the use of an ambient scribe for clinic note documentation during this visit. 1. Essential Hypertension The patient's blood pressure was recorded at 158/67 mmHg, indicating suboptimal control. The plan includes monitoring blood pressure at home and returning for a follow-up in two weeks to reassess. 2. Type 2 Diabetes Mellitus The patient's HbA1c was 6.1%, indicating good glycemic control. A plan to discontinue Actos was discussed, with dietary modifications and monitoring of blood glucose levels. 3. Hyperlipidemia The patient has elevated cholesterol levels but has declined statin therapy. No alternative cholesterol-lowering medications were desired by the patient. 4. Acute Otitis Externa The patient reported ear drainage for two weeks, and examination suggested a possible infection. The plan includes prescribing eardrops and oral antibiotics, with a follow-up in two weeks to reassess. During the visit, I discussed the patient's blood pressure management, emphasizing the importance of monitoring at home and returning for a follow-up in two weeks. We also reviewed her diabetes management, considering discontinuation of Actos with dietary modifications and monitoring. For hyperlipidemia, the patient declined statin therapy, and no alternative medications were pursued. Regarding the ear infection, I prescribed eardrops and oral antibiotics, advising a follow-up in two weeks. Orders: Orders Influenza [id number] Immunization Today Z23 - Encounter for immunization AMB Hemoglobin A1c Today E11.9 - Type 2 diabetes mellitus without complications Medications: New ciprofloxacin-dexamethasone 0.3-0.1 % 4 drps otic (ears) BID 7.5 mL 0RF 7 days amoxicillin-pot clavulanate 875-125 mg 1 tab PO BID 20 tabs 0RF 10 days Refilled blood pressure test kit-medium As directed 1 ea 0RF Patient Instructions: - Monitor blood pressure daily and record the readings. - Follow a healthy diet and monitor blood glucose levels regularly. - Use prescribed eardrops and oral antibiotics as directed. - Return for a follow-up appointment in two weeks.
[2025-08-23 13:27] VITALS: BP 158/67; PULSE 84; RESP 16; TEMP 36.6; O2SAT 96; BMI 34.8
--- OUTSIDE RECORDS SUMMARY | 2025-08-23 15:45 | XMS_ITS | Encounter Summary ---
Author Organization [facility] Address [address] [place] [id number] Phone Care Team Providers Care Burlap Spreader Name Role Phone Tino Martinez MD Primary Care Provider [phone] Encounter Details Date Type Department Care Team (Late st Contact Info) Description 11/04/2017 Ancillary Orders [facility] Orthopedics & [facility] Medicine [address] [place] [id number] Leonidas Orellana MD [address] [place] [id number] [email or web address] Bilateral hip pain Social History Tobacco Use [...] thigh documented in this encounter Care Teams Burlap Spreader Relationship Specialty Start Date End Date Tino Martinez MD [address] [place] [address] Dr Ambrose [address] [place] [address], [place] [address] PCP - General Internal Medicine 10/07/17 documented as of this encounter Additional Source Comments The information contained in this document represents components of the legal health record. It is not the complete legal health record.[facility]
--- OUTSIDE RECORDS SUMMARY | 2025-08-23 15:45 | XMS_ITS | Clinical Summary ---
Author Organization [facility] Address [address] [place] [id number] Phone Care Team Providers Care Nurse Transition Name Role Phone Tino Martinez MD Primary Care Provider [phone] Allergies No known active allergies Medications quinapril (ACCUPRIL) 20 MG tablet Take 20 mg by mouth nightly. Active hydroCHLOROthiaz glenn (HYDRODIURIL) 25 MG tablet Take 25 mg by mouth daily. Active amLODIPine (NORVASC) 10 MG tablet Take 10 mg by mouth daily. Active pioglitazone (ACTOS) 30 MG tablet Take 30 mg by mouth daily. Active rfyguhvd-kigd-ep rrous gluconat (CENTRUM WITH IRON) 9 mg iron/15 mL Liqd Take 15 mL by mouth daily. Active naproxen sodium (ALEVE) 220 MG tablet Take 220 mg by mouth 2 (two) times a day with meals. Active Active Problems Problem Noted Date Diagnosed Date Hypertension 11/04/2017 Social History Tobacco Use Types Packs/Day Years Used Date Smoking Tobacco: Former Cigarettes Q uit: 2006 Smokeless Tobacco: Never Alcohol Use Standard Drinks/Week Comments No 0 (1 standard drink = 0.6 oz pur e alcohol) Education Answer Date Recorded Are you interested in more education? Not on priscila e 03/27/2023 Are you concerned about learning? Not on file 03/27/2023 No 03/27/2023 No 03/27/2023 Digital Access Answer Date Recorded No 04/25/2023 No 04/25/2023 No 04/25/2023 Reliable internet access at home? Not on file 04/25/2023 Device with a working camera? Not on file Comments Unknown Sex and Gender Information Value Date Recorded Sex Assigned at Not on file Legal Sex Female 12:20 PM EST Gender Identity Not on file Sexual Orientation Not on file Last Filed Vital Signs Vital Sign Reading Time Taken Comments Blood Pressure - - Pulse - - Temperature - - Respiratory Rate - - Oxygen Saturation - - Inhaled Oxygen Concentration - - Weight 91.2 kg (201 lb) 01/28/2019 9:35 AM EST Height 160 cm (5' 2.99 ) 04/23/2018 11:09 AM EDT Body Mass Index 35.61 04/23/2018 11:09 AM EDT Plan of Treatment Health Maintenance Due Date Last Done Comments BLOOD PRESSURE 1947 CREATININE LEVEL 1947 LIPID PANEL 1947 POTASSIUM LEVEL 1947 DEPRESSION SCREENING 1959 SMOKING Hx and SMOKELESS TOBACCO SCREENING 1960 HEPATITIS C SCREENING 1965 ZOSTER VACCINES (1 of 2) 1997 OSTEOPOROSIS SCREENING INITIAL (ONE-TIME) 2012 PNEUMOCOCCAL VACCINES (50+ years) (2 of 2 - PPSV23) 07/06/2016 07/06/2015 RSV VACCINE (1 - 1-dose 75+ series) 2022 Adult Td,Tdap Booster 04/07/2025 04/07/2015 INFLUENZA VACCINE (#1) 2025 , 08/30/2019, 08/19/2018, Additional history exists COVID-19 VACCINE (3 - season) 2025 01/17/2021, 12/27/2020 HEPATITIS A VACCINES Aged Out No long er eligible based on patient's age to complete this topic HIB VACCINES Aged Out No longer eligi ble based on patient's age to complete this topic MENINGOCOCCAL VACCINES (ACWY) Aged Out No longer eligible based on patient's age to complete this topic MENINGOCOCCAL VACCINES (B) Aged Out N o longer eligible based on patient's age to complete this topic Medical Devices Not on file Insurance GENERIC MEDICARE REPLACEMENT GENERIC MEDICARE REPLACEMENT GENERIC MEDICARE REPLACEMENT GENERIC MEDICARE REPLACEMENT GENERIC MEDICARE REPLACEMENT GENERIC MEDICARE REPLACEMENT GENERIC MEDICARE REPLACEMENT GENERIC MEDICARE REPLACEMENT GENERIC MEDICARE REPLACEMENT Care Teams Nurse Transition Relationship Specialty Start Date End Date Tino Martinez MD [address] [place] [address] [place] [address] PCP - General Internal Medicine 10/07/17 Additional Source Comments The information contained in this document represents components of the legal health record. It is not the complete legal health record.[facility]
== END 2025-08-23 14:16 | disposition home or self-care (01) ==
LOC: HO.HMCSH 13:22
PROVIDERS: PCP Physician Assistant Medical; Visit Provider Physician Assistant Medical
DX: I10 Essential (primary) hypertension (principal); E11.9 Type 2 diabetes mellitus without complications; E78.00 Pure hypercholesterolemia, unspecified; H60.502 Unspecified acute noninfective otitis externa, left ear; H66.92 Otitis media, unspecified, left ear; Z23 Encounter for immunization

== ENCOUNTER → 2025-08-23 13:22 | Outpatient (BNVA) | payer MEDICARE, SELFPAY | PROVIDERS: PCP Physician Assistant Medical; Visit Provider Physician Assistant Medical | DX: I10 Essential (primary) hypertension (principal); E11.9 Type 2 diabetes mellitus without complications; E78.00 Pure hypercholesterolemia, unspecified; H60.509 Unspecified acute noninfective otitis externa, unspecified ear; H66.90 Otitis media, unspecified, unspecified ear; Z23 Encounter for immunization | CPT/HCPCS: 83036; 90471; 90656; 96127; 99212 ==

== ENCOUNTER 2025-09-07 10:51 | Outpatient (AMB) | payer MEDICARE, SELFPAY ==
--- NOTE | 2025-09-07 10:44 | MHC.PC.OV ---
Vital Signs 09/07/25 10:45 Height 5 ft 1.81 in Weight 187 lb 2 oz BMI 34.4 BP 186/80 H Blood Pressure Location Rt brachial Position Sitting Pulse 76 Pulse Source Pulse Oximeter Temp 97.3 F Temp Source Temporal Artery Scan Pulse Oximetry (%) 98 Oxygen Delivery Method Room Air Intake Visit Reasons: 2 week follow up Medical Billing Specialist Required: No Accompanied by: Self / Same As Patient Allergies No Known Allergies (No Known Allergies*) Allergy (Verified 09/07/25 13:46) Medication List - Last Reconciled 09/07/25 by Alee Camarena PA-C amlodipine 10 mg PO DAILY aspirin 81 mg PO DAILY blood pressure test kit-medium As directed ciprofloxacin-dexamethasone 0.3-0.1 % 4 drps otic (ears) BID clopidogrel 75 mg PO DAILY hydralazine 10 mg PO BID 30 days hydrochlorothiazide 25 mg PO DAILY levothyroxine 50 mcg PO DAILY lisinopril 20 mg PO BID multivit,xasfowp-dpq-mgked acd 200 mcg (One-A-Day Proactive 65 Plus) 2 tabs PO DAILY pioglitazone 30 mg PO DAILY Tobacco use date assessed: 09/07/25 Dental Screening Dental Screen Date: 09/07/25 Did you have a dental visit in the last 12 months?: No Did you have a dental problem in the last 6 months where you did not have access to dental care?: No Was dental information given to patient?: No HPI 2 week follow up HPI Details The patient is a 80-year-old female presenting for a follow-up visit to manage her blood pressure. Her blood pressure was recorded at 158/67 mmHg during her last visit, and she has been monitoring her blood pressure at home. Over the past month, her readings have predominantly been in the 150s/80s and 90s, with only two instances of lower readings at 136/70 mmHg. She is currently on a regimen of amlodipine 10 mg, hydrochlorothiazide 25 mg, and lisinopril 20 mg twice daily. Despite this, her blood pressure remains elevated, prompting consideration for additional medication. The patient denies experiencing any chest pain, dyspnea, or other acute symptoms. [facility] Medical History Acute otitis media Acute otitis externa Acute respiratory disease Impacted cerumen of left ear Spinal stenosis, lumbar region with neurogenic claudication Class 2 severe obesity with body mass index (BMI) of 35 to 39.9 with serious comorbidity Hypercholesterolemia Diabetes mellitus Essential (primary) hypertension Surgical History History of left hip replacement History of back surgery History of intravascular stent placement History of surgery History of tonsillectomy and adenoidectomy Family History Father Heart disease Mother Intestinal hemorrhage Family/Other Heart disease Hypertension Social History Housing: House Alcohol intake: current Alcohol intake frequency: does not drink Patient Tobacco Use Status: Former Tobacco user Tobacco use type: Cigarette e-Cigarette/Vaping Use: Never Used Second Hand Smoke Exposure: No service: No Current occupational status: retired Cognitive needs: No (walker) Hearing needs: No Vision needs: Yes (rx glasses) Questionnaire PHQ-9 Over the last 2 weeks, how often have you been bothered by any of the following problems? 1. Little interest or pleasure in doing things: not at all 2. Feeling down, depressed, or hopeless: not at all 3. Trouble falling or staying asleep, or sleeping too much: not at all 4. Feeling tired or having little energy: not at all 5. Poor appetite or overeating: not at all 6. Feeling bad about yourself - or that you are a failure or have let yourself or your family down: not at all 7. Trouble concentrating on things, such as reading the newspaper or watching television: not at all 8. Moving or speaking so slowly that other people could have noticed. Or the opposite - being so fidgety or restless that you have been moving around a lot more than usual: not at all 9. Thoughts that you would be better off or of hurting yourself in some way: not at all Total score: 0 Depression Screening Interpretation: Negative Depression Screening Done: Yes 06169 - PHQ-9 Billing: Yes Source: Developed by Drs. Kirk Lizama, Katelynn Kent, Rene Cherry and colleagues, with an educational dulce from [employer]. Thrive Questionnaire Date Thrive assessed: 09/07/25 I am a: Patient What is your living situation today?: I have a steady place to live Within the past 12 months, did the food you bought not last and you didn't have the money to get more?: Never true Within the past 12 months, did you worry whether your food would run out before you got money to buy more?: Never true Do you have trouble paying for medicines?: No Do you have trouble getting transportation to medical appointments?: No Do you have trouble paying your heating and electricity bill?: No Do you have trouble taking care of your child, family member or friend?: No Do you have trouble with day-to-day activities such as bathing, preparing meals, shopping, managing finances, etc.?: No Are you currently unemployed and looking for a job?: No Are you interested in more education?: No Please select the resources that you would like help with: None Currently or been in a relationship where the following occur: No concerns reported THRIVE Score: 0 AUDIT C Alcohol Use Questionnaire (AUDIT-C) 1. How often do you have a drink containing alcohol?: Monthly or less 2. How many drinks containing alcohol do you have on a typical day when you are drinking?: 1 or 2 3. How often do you have six or more drinks on one occasion?: Never Total Score: 1 Score Reviewed/Action Taken: No IRINA-7 AMB Questionnaire IRINA-7 Date IRINA - 7 assessed: 09/07/25 Feeling nervous, anxious, or on edge: 0 = Not at all Not being able to stop or control worryin = Not at all Worrying too much about different things: 0 = Not at all Trouble relaxin = Not at all Being so restless that it is hard to sit still: 0 = Not at all Becoming easily annoyed or irritable: 0 = Not at all Feeling afraid as if something awful might happen: 0 = Not at all Total IRINA-7 score (0-4 normal; 5-9 mild; 10-14 moderate; 15-21 severe): 0 Source: Developed by Drs. Kirk Lizama, Katelynn Kent, Rene Cherry and colleagues, with an educational dulce from [employer] IRINA-7 Assessment Billing IRINA-7 Assessment Tool: IRINA-7 Assessment 71551 Review of Systems Const Details: - Cardiovascular: Denies chest pain. - Respiratory: Denies dyspnea. - General: Denies any acute complaints or other symptoms. All systems reviewed & are unremarkable except as noted in HPI and below Physical exam (Primary Care) Vital Signs: Last Vital Signs Temp 97.3 F 09/07/25 10:45 Pulse 76 09/07/25 10:45 BP 186/80 H 09/07/25 10:45 Pulse Ox 98 09/07/25 10:45 Oxygen Delivery Method Room Air 09/07/25 10:45 Care Plan Goal for BP management: <140/90 at Goal BMI result Body Mass Index 34.4 BMI Assessment/Plan discussion: High BMI High, discussed plan: lifestyle, weight reduction, dietary, physical activity, alcohol moderation and other Tobacco/Smoking Status: Tobacco use Status Tobacco use date assessed 09/07/25 09/07/25 10:49 Patient Tobacco Use Status Former Tobacco user 09/07/25 10:49 Tobacco use type Cigarette 09/07/25 10:49 e-Cigarette/Vaping Use Never Used 09/07/25 10:49 PHQ-9: PHQ-9 Score PHQ-9: Total score 0 09/07/25 13:00 Depression Screening Interpretation: Negative Thrive Assessment: Date of Thrive Assessment Date Thrive assessed 09/07/25 09/07/25 10:49 Currently or been in a relationship where the following occur: No concerns reported Const Other: Appearance: Alert. Oriented X3. No acute distress. Head: Normal external exam. Normocephalic. Atraumatic. Eyes: Pupils are equal, round, and reactive to light. Extraocular movements intact. Conjunctiva and sclera normal. Eyelids normal. Throat: Pharynx normal. Uvula midline. Moist mucous membranes. Neck: Normal inspection. Neck supple. Full range of motion. Cardiovascular: Normal heart rate and rhythm. Heart sound normal. No murmurs noted. Pulses normal throughout. Respiratory: No respiratory distress. Painless inspiration. Breath sounds normal. No wheezes/rales/rhonchi noted. Chest nontender. No accessory muscle usage noted or decreased air movement noted. Back: Full range of motion noted. Skin: Skin warm and dry. Normal skin color. Extremities: No lower extremity edema. Extremities exhibit normal range of motion. Neuro: Oriented X 3. No motor deficit. No sensory deficit. Reflexes normal. Coding Level of Care Code Est Pt Level 4 (75344) Complex EM visit Add On G2211 Diagnoses Essential (primary) hypertension I10 Additional Codes IRINA-7 Assessment Billing - IRINA-7 Assessment Tool: IRINA-7 Assessment 87833 ([id number]) PHQ-9 - 71030 - PHQ-9 Billing: Yes ([id number]) Assessment & Plan Assessment & Plan (1) Essential (primary) hypertension: Code(s): I10 - Essential (primary) hypertension Category: Medical Plan: The patient is currently on amlodipine 10 mg, hydrochlorothiazide 25 mg, and lisinopril 20 mg BID for hypertension management. Due to persistent elevated blood pressure readings, hydralazine 10 mg BID will be added to her regimen. She will return in one month for a follow-up blood pressure check and to review her blood pressure diary. Plan Plan Patient was informed and verbally consented to the use of an ambient scribe for clinic note documentation during this visit. 1. Essential Hypertension The patient is currently on amlodipine 10 mg, hydrochlorothiazide 25 mg, and lisinopril 20 mg BID for hypertension management. Due to persistent elevated blood pressure readings, hydralazine 10 mg BID will be added to her regimen. She will return in one month for a follow-up blood pressure check and to review her blood pressure diary. The patient and I discussed her current blood pressure management plan, including the addition of hydralazine 10 mg BID to address her persistent hypertension. We agreed on a follow-up visit in one month to assess her response to the new medication and review her blood pressure diary. Medications: New hydralazine 10 mg PO BID 60 tabs 0RF 30 days Patient Instructions: - Continue taking amlodipine, hydrochlorothiazide, and lisinopril as prescribed. - Start taking hydralazine 10 mg twice daily. - Monitor blood pressure daily and record readings in the diary. - Return for a follow-up appointment in one month.
[2025-09-07 10:45] VITALS: BP 186/80; PULSE 76; TEMP 36.3; O2SAT 98; BMI 34.4
== END 2025-09-07 11:33 | disposition home or self-care (01) ==
LOC: HO.HMCSH 10:51
PROVIDERS: PCP Physician Assistant Medical; Visit Provider Physician Assistant Medical
DX: I10 Essential (primary) hypertension (principal)

== ENCOUNTER → 2025-09-07 10:51 | Outpatient (BNVA) | payer MEDICARE, SELFPAY | PROVIDERS: PCP Physician Assistant Medical; Visit Provider Physician Assistant Medical | DX: I10 Essential (primary) hypertension (principal); Z79.899 Other long term (current) drug therapy; Z13.31 Encounter for screening for depression; Z13.39 Encounter for screening examination for other mental health and behavioral disorders | CPT/HCPCS: 96127; 99212 ==

== ENCOUNTER 2025-10-04 10:34 | Outpatient (REF) | payer MEDICARE, SELFPAY ==
[2025-10-04 11:15] LABS: Appearance Urine Clear; Glucose Urine UA Negative (Negative); PH 5.0 (5.0-9.0); Specific Gravity - Urine 1.020 (1.005-1.025); UMIC TRIGGER UACC YES
[2025-10-04 11:24] LABS: UACC Culture Trigger YES
[2025-10-04 12:19] LABS: Microalbum/Creatinine Ratio Ur 18.5 ug/mg cr (<30)
--- OUTSIDE RECORDS SUMMARY | 2025-10-04 12:20 | XMS_ITS | Clinical Summary ---
Author Organization [facility] Address [address] [place] [phone] Phone Care Team Providers Care Industrial Hygiene Engineer Name Role Phone Tino Martinez MD Primary Care Provider [phone] Allergies No known active allergies Medications quinapril (ACCUPRIL) 20 MG tablet Take 20 mg by mouth nightly. Active hydroCHLOROthiaz glenn (HYDRODIURIL) 25 MG tablet Take 25 mg by mouth daily. Active amLODIPine (NORVASC) 10 MG tablet Take 10 mg by mouth daily. Active pioglitazone (ACTOS) 30 MG tablet Take 30 mg by mouth daily. Active magafhzz-iabn-ex rrous gluconat (CENTRUM WITH IRON) 9 mg [...] VACCINES (50+ years) (2 of 2 - PCV20 or PCV21) 07/06/2016 07/06/2015 RSV VACCINE (1 - 1-dose [...] MEDICARE REPLACEMENT GENERIC MEDICARE REPLACEMENT Care Teams Industrial Hygiene Engineer Relationship Specialty Start Date End Date Tino Martinez MD [address] [place] [address] [place] [address] PCP - General Internal Medicine 10/07/17 Additional Source Comments The information contained in this document represents components of the legal health record. It is not the complete legal health record.[facility]
--- OUTSIDE RECORDS SUMMARY | 2025-10-04 12:20 | XMS_ITS | Encounter Summary ---
Author Organization [facility] Address [address] [facility] [facility] [address] [place] [phone] Phone Care Team Providers Care 2Nd Grade Teacher Name Role Phone Tino Martinez MD Primary Care Provider [phone] Encounter Details Date Type Department Care Team (Late st Contact Info) Description 11/04/2017 Ancillary Orders [facility] Orthopedics & Sports Medicine [address] [place] [phone] Leonidas Orellana MD [address] [place] [phone] [email or web address] Bilateral hip pain Social History Tobacco Use [...] thigh documented in this encounter Care Teams 2Nd Grade Teacher Relationship Specialty Start Date End Date Tino Martinez MD [address] [place] [address] Dr Ambrose [address] [place] [address], [place] [address] PCP - General Internal Medicine 10/07/17 documented as of this encounter Additional Source Comments The information contained in this document represents components of the legal health record. It is not the complete legal health record.[facility]
== END 2025-10-04 10:35 | disposition home or self-care (01) ==
LOC: HO.LAB 10:34
PROVIDERS: PCP Internal Medicine; Visit Provider Physician Assistant Medical
DX: Z00.00 Encounter for general adult medical examination without abnormal findings (principal); E11.9 Type 2 diabetes mellitus without complications
CPT/HCPCS: 81001; 81003; 82043; 82570; 87086

== ENCOUNTER 2025-10-10 10:22 | Outpatient (AMB) | payer MEDICARE, SELFPAY ==
--- NOTE | 2025-10-10 10:25 | A.OFFPC_ITS ---
Vital Signs 10/10/25 10:31 Height 5 ft 1.8 in Weight 186 lb 0.8 oz BMI 34.2 BP 152/72 H Blood Pressure Location Rt brachial Pulse 72 Pulse Source Pulse Oximeter Temp 97.4 F Pulse Oximetry (%) 96 Intake Visit Reasons: 1 Month follow up Intake Note: No Issues Allergies No Known Allergies (No Known Allergies*) Allergy (Verified 10/10/25 11:56) Medication List - Last Reconciled 10/10/25 by Alee Camarena PA-C amlodipine 10 mg PO DAILY aspirin 81 mg PO DAILY blood pressure test kit-medium As directed clopidogrel 75 mg PO DAILY fexofenadine-pseudoephedrine 60-120 mg ER (Deloris-D 12 Hour) 1 tab PO Q12H PRN hydralazine 10 mg PO BID 90 days hydrochlorothiazide 25 mg PO DAILY levothyroxine 50 mcg PO DAILY lisinopril 20 mg PO BID 90 days multivit,btzwgzx-ytc-ckfbv acd 200 mcg (One-A-Day Proactive 65 Plus) 2 tabs PO DAILY pioglitazone 30 mg PO DAILY Tobacco use date assessed: 09/07/25 Dental Screening Dental Screen Date: 09/07/25 HPI 1 Month follow up HPI Details The patient is a 80-year-old female presenting for a three-month follow-up for chronic condition management. She has a history of hypertension and is prescribed lisinopril 20 mg twice a day, hydrochlorothiazide 25 mg, hydralazine 10 mg twice a day, and amlodipine. She recently ran out of her hydralazine medication for a few days. The patient reports a sensation of fullness in her ear that feels like it could pop and sometimes sounds crunchy . She has a history of chronic ear infections as a child and notes decreased hearing in her right ear, stating she cannot hear out of it at all when sleeping on that side. She has never had a hearing exam. Review of recent labs reveals an A1c of 6.1 in June and high cholesterol based on blood work from November. The patient is not taking any cholesterol medication and has previously declined statin therapy. [facility] Medical History (Updated 10/10/25 @ 11:58 by Alee Camarena PA-C) Healthcare maintenance Decreased hearing of right ear Acute otitis media Acute otitis externa Acute respiratory disease Impacted cerumen of left ear Spinal stenosis, lumbar region with neurogenic claudication Class 2 severe obesity with body mass index (BMI) of 35 to 39.9 with serious comorbidity Hypercholesterolemia Diabetes mellitus Essential (primary) hypertension Surgical History History of left hip replacement History of back surgery History of intravascular stent placement History of surgery History of tonsillectomy and adenoidectomy Family History Father Heart disease Mother Intestinal hemorrhage Family/Other Heart disease Hypertension Social History Housing: House Alcohol intake: current Alcohol intake frequency: does not drink Patient Tobacco Use Status: Former Tobacco user Tobacco use type: Cigarette e-Cigarette/Vaping Use: Never Used Second Hand Smoke Exposure: No service: No Current occupational status: retired Cognitive needs: No (walker) Hearing needs: No Vision needs: Yes (rx glasses) Questionnaire PHQ-9 Over the last 2 weeks, how often have you been bothered by any of the following problems? 1. Little interest or pleasure in doing things: not at all 2. Feeling down, depressed, or hopeless: not at all 3. Trouble falling or staying asleep, or sleeping too much: not at all 4. Feeling tired or having little energy: not at all 5. Poor appetite or overeating: not at all 6. Feeling bad about yourself - or that you are a failure or have let yourself or your family down: not at all 7. Trouble concentrating on things, such as reading the newspaper or watching television: not at all 8. Moving or speaking so slowly that other people could have noticed. Or the opposite - being so fidgety or restless that you have been moving around a lot more than usual: not at all 9. Thoughts that you would be better off or of hurting yourself in some way: not at all Total score: 0 Depression Screening Interpretation: Negative Depression Screening Done: Yes 10917 - PHQ-9 Billing: Yes Source: Developed by Drs. Kirk Lizama, Katelynn Kent, Rene Cherry and colleagues, with an educational dulce from [employer]. Thrive Questionnaire Date Thrive assessed: 09/07/25 I am a: Patient What is your living situation today?: I have a steady place to live Within the past 12 months, did the food you bought not last and you didn't have the money to get more?: Never true Within the past 12 months, did you worry whether your food would run out before you got money to buy more?: Never true Do you have trouble paying for medicines?: No Do you have trouble getting transportation to medical appointments?: No Do you have trouble paying your heating and electricity bill?: No Do you have trouble taking care of your child, family member or friend?: No Do you have trouble with day-to-day activities such as bathing, preparing meals, shopping, managing finances, etc.?: No Are you currently unemployed and looking for a job?: No Are you interested in more education?: No Please select the resources that you would like help with: None Currently or been in a relationship where the following occur: No concerns reported THRIVE Score: 0 AUDIT C Alcohol Use Questionnaire (AUDIT-C) 1. How often do you have a drink containing alcohol?: Monthly or less 2. How many drinks containing alcohol do you have on a typical day when you are drinking?: 1 or 2 3. How often do you have six or more drinks on one occasion?: Never Total Score: 1 Score Reviewed/Action Taken: No IRINA-7 AMB Questionnaire IRINA-7 Date IRINA - 7 assessed: 09/07/25 Feeling nervous, anxious, or on edge: 0 = Not at all Not being able to stop or control worryin = Not at all Worrying too much about different things: 0 = Not at all Trouble relaxin = Not at all Being so restless that it is hard to sit still: 0 = Not at all Becoming easily annoyed or irritable: 0 = Not at all Feeling afraid as if something awful might happen: 0 = Not at all Total IRINA-7 score (0-4 normal; 5-9 mild; 10-14 moderate; 15-21 severe): 0 Source: Developed by Drs. Kirk Lizama, Katelynn Kent, Rene Cherry and colleagues, with an educational dulce from [employer] IRINA-7 Assessment Billing IRINA-7 Assessment Tool: IRINA-7 Assessment 94147 Review of Systems Const Details: - Ear, Nose, Throat: Reports sensation of aural fullness, a crunchy sound in the ear, and decreased hearing in the right ear. - Reports no hearing issues in the left ear. - Denies current use of allergy medication. All systems reviewed & are unremarkable except as noted in HPI and below Physical exam (Primary Care) Vital Signs: Last Vital Signs Temp 97.4 F 10/10/25 10:31 Pulse 72 10/10/25 10:31 BP 152/72 H 10/10/25 10:31 Pulse Ox 96 10/10/25 10:31 Care Plan Goal for BP management: <140/90 patient to continue amlodipine 10 mg, hydrochlorothiazide 25 mg, lisinopril 20 mg b.i.d. and hydralazine 10 mg b.i.d. refill sent at this time BMI result Body Mass Index 34.2 BMI Assessment/Plan discussion: High BMI High, discussed plan: lifestyle, weight reduction, dietary, physical activity, alcohol moderation and other Tobacco/Smoking Status: Tobacco use Status Tobacco use date assessed 09/07/25 10/10/25 10:34 Patient Tobacco Use Status Former Tobacco user 10/10/25 10:34 Tobacco use type Cigarette 10/10/25 10:34 e-Cigarette/Vaping Use Never Used 10/10/25 10:34 PHQ-9: PHQ-9 Score PHQ-9: Total score 0 10/10/25 10:34 Depression Screening Interpretation: Negative Thrive Assessment: Date of Thrive Assessment Date Thrive assessed 09/07/25 10/10/25 10:34 Currently or been in a relationship where the following occur: No concerns reported Const Other: Appearance: Alert. Oriented X3. No acute distress. Head: Normal external exam. Normocephalic. Atraumatic. Eyes: Pupils are equal, round, and reactive to light. Extraocular movements intact. Conjunctiva and sclera normal. Eyelids normal. Ears: External auditory canal normal. Tympanic membranes normal. Decreased hearing in the right ear noted. Normal mastoids. No foreign bodies noted. Throat: Pharynx normal. Uvula midline. Moist mucous membranes. Neck: Normal inspection. Neck supple. Full range of motion. No adenopathy. Cardiovascular: Normal heart rate and rhythm. Heart sound normal. No murmurs noted. Pulses normal throughout. Respiratory: No respiratory distress. Painless inspiration. Breath sounds normal. No wheezes/rales/rhonchi noted. Chest nontender. No accessory muscle usage noted or decreased air movement noted. Back: Full range of motion noted. Skin: Skin warm and dry. Normal skin color. Normal skin turgor. No rashes/lesions/lacerations noted. Extremities: No lower extremity edema. Extremities exhibit normal range of motion. Neuro: Oriented X 3. No motor deficit. No sensory deficit. Reflexes normal. Results Reviewed Results Reviewed: - Labs from June: A1c was 6.1. - Labs from November: Blood work was normal. - Thyroid was normal. - Cholesterol was high. Coding Level of Care Code Est Pt Level 4 (27055) Complex EM visit Add On G2211 Diagnoses Essential (primary) hypertension I10 Decreased hearing of right ear H91.91 Hypercholesterolemia E78.00 Healthcare maintenance Z00.00 Additional Codes IRINA-7 Assessment Billing - IRINA-7 Assessment Tool: IRINA-7 Assessment 12787 ([id number]) PHQ-9 - 55057 - PHQ-9 Billing: Yes ([id number]) Assessment & Plan Assessment & Plan (1) Essential (primary) hypertension: Code(s): I10 - Essential (primary) hypertension Category: Medical Plan: The patient's blood pressure was slightly elevated, which is attributed to recently running out of her hydralazine medication for a few days. She will continue her current regimen of lisinopril 20 mg twice daily, hydroch lorothiazide 25 mg, hydralazine 10 mg twice daily, and amlodipine. A refill for hydralazine has been sent to her pharmacy. (2) Decreased hearing of right ear: Code(s): H91.91 - Unspecified hearing loss, right ear Category: Medical Plan: The patient complains of aural fullness and a crunchy sound, along with decreased hearing in the right ear. A prescription for Deloris has been initiated to potentially alleviate the sensation of fullness. A referral will be made to ENT for further evaluation of her ear symptoms. Additionally, a referral was placed for a formal hearing test due to her reported hearing loss. (3) Hypercholesterolemia: Code(s): E78.00 - Pure hypercholesterolemia, unspecified Category: Medical Plan: The patient's cholesterol was noted to be high on labs from November. She declined pharmacologic treatment, including a non-statin option (Zetia), and stated she knows how to lower it naturally. (4) Healthcare maintenance: Code(s): Z00.00 - Encounter for general adult medical examination without abnormal findings Category: Medical Plan: The patient will follow up in six months, and this visit will be scheduled as her annual exam. She was advised to call the office before her annual visit to have routine lab work ordered. Plan Plan Patient was informed and verbally consented to the use of an ambient scribe for clinic note documentation during this visit. 1. Hypertension The patient's blood pressure was slightly elevated, which is attributed to recently running out of her hydralazine medication for a few days. She will continue her current regimen of lisinopril 20 mg twice daily, hydrochlorothiazide 25 mg, hydralazine 10 mg twice daily, and amlodipine. A refill for hydralazine has been sent to her pharmacy. 2. Ear Fullness And Hearing Loss The patient complains of aural fullness and a crunchy sound, along with decreased hearing in the right ear. A prescription for Deloris has been initiated to potentially alleviate the sensation of fullness. A referral will be made to ENT for further evaluation of her ear symptoms. Additionally, a referral was placed for a formal hearing test due to her reported hearing loss. 3. Hyperlipidemia The patient's cholesterol was noted to be high on labs from November. She declined pharmacologic treatment, including a non-statin option (Zetia), and stated she knows how to lower it naturally. 4. Health Maintenance The patient will follow up in six months, and this visit will be scheduled as her annual exam. She was advised to call the office before her annual visit to have routine lab work ordered. I discussed with the patient that her blood pressure was slightly elevated today, likely because she had run out of her hydralazine for a few days. We will continue her current antihypertensive medications, and I have sent a refill for the hydralazine. Regarding her ear symptoms of fullness and a crunchy sensation, I prescribed a trial of Deloris and explained it might help by reducing congestion. I also informed her that I am placing a referral to an ENT specialist for a more thorough evaluation. Given her reported decrease in hearing, I recommended a formal hearing test and have placed a referral for this. We reviewed her lab results, noting her A1c remains in the prediabetic range and her cholesterol is high. I offered a non-statin medication, Zetia, for her cholesterol, but she declined any pharmacotherapy, expressing a preference for natural management. We agreed on a follow-up appointment in six months, which will also serve as her annual wellness visit. Orders: Referrals Ear/Nose/Throat Referral H91.91 - Unspecified hearing loss, right ear Speech and Hearing Referral H91.91 - Unspecified hearing loss, right ear Medications: New fexofenadine-pseudoephedrine 60-120 mg ER (Deloris-D 12 Hour) 1 tab PO Q12H PRN 30 tabs 0RF allergy symptoms Changed From hydralazine 10 mg PO BID 60 tabs 0RF 30 days To hydralazine 10 mg PO BID 180 tabs 3RF 90 days Patient Instructions: - Continue taking all of your blood pressure medications as prescribed. 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 - You will receive a call from an Ear, Nose, and Throat (ENT) specialist's office to schedule an appointment. - You will also receive a call from the Speech and Hearing center at [place] to schedule a hearing test. - Please return for a follow-up appointment in six months, which will be for your annual check-up. - Before your annual visit, please call our office so we can order your lab work for you.
[2025-10-10 10:31] VITALS: BP 152/72; PULSE 72; TEMP 36.3; O2SAT 96; BMI 34.2
--- OUTSIDE RECORDS SUMMARY | 2025-10-10 11:57 | XMS_ITS | Encounter Summary ---
Author Organization [facility] Address [address] [place] [phone] Phone Care Team Providers Care Copy Chaser Name Role Phone Tino Martinez MD Primary Care Provider [phone] Encounter Details Date Type Department Care Team (Late st Contact Info) Description 11/04/2017 Ancillary Orders [facility] [address] [place] [id number] Leonidas Orellana MD [address] [place] [id number] [email or web address] Bilateral hip pain Social History Tobacco [...] thigh documented in this encounter Care Teams Copy Chaser Relationship Specialty Start Date End Date Tino Martinez MD [address] [place] [address] Dr Ambrose [address] [place] [address], [place] [address] PCP - General Internal Medicine 10/07/17 documented as of this encounter Additional Source Comments The information contained in this document represents components of the legal health record. It is not the complete legal health record.[facility]
--- OUTSIDE RECORDS SUMMARY | 2025-10-10 11:57 | XMS_ITS | Clinical Summary ---
Author Organization [facility] Address [address] [place] [phone] Phone Care Team Providers Care Half Sole Fitter Name Role Phone Tino Martinez MD Primary Care Provider [phone] Allergies No known active allergies Medications quinapril (ACCUPRIL) 20 MG tablet Take 20 mg by mouth nightly. Active hydroCHLOROthiaz glenn (HYDRODIURIL) 25 MG tablet Take 25 mg by mouth daily. Active amLODIPine (NORVASC) 10 MG tablet Take 10 mg by mouth daily. Active pioglitazone (ACTOS) 30 MG tablet Take 30 mg by mouth daily. Active qwrllfko-hxky-kq rrous gluconat (CENTRUM WITH IRON) 9 mg [...] MEDICARE REPLACEMENT GENERIC MEDICARE REPLACEMENT Care Teams Half Sole Fitter Relationship Specialty Start Date End Date Tino Martinez MD [address] [place] [address] [place] [address] PCP - General Internal Medicine 10/07/17 Additional Source Comments The information contained in this document represents components of the legal health record. It is not the complete legal health record.[facility]
== END 2025-10-10 11:01 | disposition home or self-care (01) ==
LOC: HO.HMCSH 10:22
PROVIDERS: PCP Internal Medicine; Visit Provider Physician Assistant Medical
DX: I10 Essential (primary) hypertension (principal); H91.91 Unspecified hearing loss, right ear; E78.00 Pure hypercholesterolemia, unspecified; Z00.00 Encounter for general adult medical examination without abnormal findings

== ENCOUNTER → 2025-10-10 10:22 | Outpatient (BNVA) | payer MEDICARE, SELFPAY | PROVIDERS: PCP Internal Medicine; Visit Provider Physician Assistant Medical | DX: Z00.00 Encounter for general adult medical examination without abnormal findings (principal); E78.00 Pure hypercholesterolemia, unspecified; H91.91 Unspecified hearing loss, right ear; I10 Essential (primary) hypertension | CPT/HCPCS: 96127; 99212 ==